=== PATIENT | female | born 1940 | race Caucasian/White ===

== ENCOUNTER 2017-07-26 10:56 | Inpatient (IN) | payer OTHER ==
[~2017-07-26] VITALS: Ht 149.9 cm; Wt 72.4 kg
[~2017-07-26 10:56] MED LIST: ALBUTEROL0.09 MG/A1 INH; ALBUTEROL1.25 MG/3 INH/SOL; ASPIRIN EC81 M1 PO; AUGMENTIN 875-1 EACH PO; CALCIUM600 M3 PO; CEPHALEXIN500 MG PO; COUMADIN5 M2 PO; CRESTOR10 M1 PO; DAILY MULTIPLE1 EACH PO; DOCUSATE SODIU100 M3 PO; FISH OIL CONC1000 M1 PO; FUROSEMIDE20 M1 PO; JANUVIA50 M1 PO; KLOR-CON M1010 ME1 PO; LEVOTHYROXINE25 MCG PO; LISINOPRIL40 M1 PO; LORAZEPAM0.5 MG PO; MEDROL4 M2 PO; METFORMIN HCL1000 M1 PO; OFIRMEV1000 MG/10 PO; PREDNISONE10 MG PO; RALOXIFENE HYDR60 MG PO; SPIRIVA18 MCG INH; TRIAMCINOLONE 0.1 GM TOP; VITAMIN D1000 IU PO; VITAMIN D3400 UNI1 PO; VITAMIN E400 UNI4 PO; ZITHROMAX 500M500 MG PO
--- NOTE | 2017-07-26 11:13 | ED UPPER/LOWER EXTREMITY COMPL ---
History of Present Illness General Chief Complaint: Upper Extremity Injury Stated Complaint: BIBA LEFT ARM PAIN S/P HUMEROUS FX 06/28 Source: patient Exam Limitations: no limitations Vital Signs & Intake/Output Vital Signs & Intake/Output Vital Signs Date Time Temp Pulse Resp B/P B/P Pulse O2 O2 Flow FiO2 Mean Ox Delivery Rate 07/30 1600 96 Room Air Room Air 07/30 1600 98.3 102 18 116/60 96 Room Air Room Air 07/30 1250 96 Nasal 1.0L Cannula 07/30 1200 97 Nasal 1.0L Cannula 07/30 0800 98 Nasal 1.0L Cannula 07/30 0800 97.2 100 18 114/60 98 Nasal 1.0L Cannula 07/30 0400 99 Nasal 1.0L Cannula 07/30 0000 98 Nasal 1.0L Cannula 07/30 0000 98.1 94 20 110/50 98 Nasal 1.0L Cannula 07/29 2156 95 Room Air Room Air ED Intake and Output 07/30 0000 07/29 1200 Intake Total 1988 520 Output Total 1200 600 Balance 788 -80 Intake, Blood 350 Product Intake, IV 198 520 Intake, Oral 1440 Number 0 1 Bowel Movements Output, Urine 1200 600 Patient 160 lb Weight Allergies Coded Allergies: NO KNOWN ALLERGIES (09/22/14) Triage Nurses Notes Reviewed? yes Onset: Gradual Duration: week(s): Timing: recent history Severity: moderate Pain/Injury Location: Left: Shoulder. HPI: 77yo female with hx of DM, HTN, PE BIBA to ED from rehab facility complaining of left shoulder pain. Patient sustained left humeral neck fracture on 06/28/17 at her home for which she was admitted to the hospital for. She was discharged to rehabilitation facility and has been there since. Patient is on tramadol and oxycontin however states that she still has significant left shoulder and arm pain. Patient states that she has recently been treated for dehydration. Patient has been getting IV fluids at the rehab facility. Patient reports diarrhea yesterday. She denies numbness, paresthesias, fevers, chills, cough, abdominal pain, nausea, vomiting, dysuria, urinary odor or frequency. (Maria Elena AVELAR,Sylvia Mena) Reconcile Medications Aspirin (Ecotrin*) 81 MG TABLET.DR 1 TAB PO DAILY HEART HEALTH (Reported) Enoxaparin Sodium (Lovenox) 120 MG/0.8 ML SYRINGE 120 MG SC DAILY BLOOD THINNER (Reported) Levothyroxine Sodium 25 MCG TABLET 2 TAB PO DAILY AC THYROID (Reported) Lisinopril 40 MG TABLET 1 TAB PO DAILY BP (Reported) Melatonin 3 MG TABLET 2 TAB PO QHS SLEEP (Reported) Oxycodone HCl 5 MG TABLET 1 TAB PO BID PAIN (Reported) Pantoprazole Sodium 40 MG TABLET.DR 1 TAB PO DAILY GI (Reported) Pravastatin Sodium 10 MG TABLET 1 TAB PO DAILY CHOLESTEROL (Reported) Sitagliptin Phosphate (Januvia) 50 MG TABLET 0.5 TAB PO DAILY DIABETES ( Reported) Sucralfate (Carafate) 1 GRAM TABLET 1 TAB PO 4 TIMES/DAY GI (Reported) Tramadol HCl (Ultram) 50 MG TABLET 1 TAB PO Q6P PRN PAIN (Reported) (Renee MARES,Mariela) Past History Travel History Traveled to [place] past 21 day No Medical History Any Pertinent Medical History? 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 No (Sylvia Del Real) Review of Systems Review of Systems Constitutional: Reports: see HPI. EENTM: Reports: no symptoms. Respiratory: Reports: no symptoms. Cardiovascular: Reports: no symptoms. Gastrointestinal/Abdominal: Reports: see HPI. Genitourinary: Reports: no symptoms. Musculoskeletal: Reports: see HPI. Skin: Reports: no symptoms. Neurological/Psychological: Reports: no symptoms. Hematologic/Endocrine: Reports: no symptoms. Immunological: Reports: no symptoms. All Other Systems: Reviewed and Negative (Sylvia Del Real) Physical Exam Physical Exam General Appearance: well developed/nourished, no apparent distress, alert, awake Head: atraumatic, normal appearance Eyes: Bilateral: normal appearance. Ears, Nose, Throat: hearing grossly normal Neck: normal inspection, supple, full range of motion Cardiovascular/Respiratory: normal breath sounds, no respiratory distress, tachycardia Peripheral Pulses: 2+ radial (R), 2+ radial (L) Gastrointestinal: nontender Back: healing ecchymosis to back, nontender, mild erythema to sacral area without swelling, warmth, or tenderness Shoulder Left: in shoulder immobilizer, tenderness to palpation Shoulder Right: normal range of motion, normal inspection Elbow Left: nontender, moderate firmness and swelling to upper arm Elbow Right: normal range of motion, normal inspection Hand Left: normal inspection, normal range of motion Hand Right: normal inspection, normal range of motion Neurologic/Tendon: normal sensation Skin: intact, warm/dry, ecchymosis (Maria Elena AVELAR,Sylvia Mena) Progress Differential Diagnosis: cellulitis, compartment syndrome, contusion, fracture, septic arthritis, sprain, tendon injury, sepsis, UTI, ADRIANA, electrolyte abnormality, dehydration Plan of Care: Orders Procedure Date/time Status Transfer patient to 07/30 1313 Active Peña, Insertion/Removal/Asses 07/30 0834 Complete Turn and Reposition 07/30 042 Active Skin Integrity Protocol 07/30 0423 Active RT RE-EVALUATION 07/30 UNK Complete MISSING MEDICATION FORM 07/30 UNK Active INCENTIVE SPIROMETRY TRX CHG 07/29 UNK Complete OXYGEN 07/29 UNK Complete OXYGEN DAILY CHARGE 07/29 UNK Complete INCENTIVE SPIROMETRY TRX CHG 07/28 UNK Complete OXYGEN 07/28 UNK Complete OXYGEN DAILY CHARGE 07/28 UNK Complete OXYGEN SETUP CHG 07/27 UNK Complete INCENTIVE SPIROMETRY TRX CHG 07/27 UNK Complete OXYGEN 07/27 UNK Complete OXYGEN TRANSPORT 07/27 UNK Complete Current Medications Sig/Fanny Start time Last Medication Dose Stop Time Status Admin Heparin Sodium 5,000 UNIT Q8 07/29 1400 AC 07/30 (Porcine) 1421 Lidocaine 1 PAT 0800 07/28 0800 AC 07/30 (Lidoderm) 0942 Melatonin 6 MG AT BEDTIME 07/27 2200 AC 07/29 (Melatonin) 2121 Pravastatin Sodium 10 MG 1700 07/27 1700 AC 07/30 (Pravachol) 1639 Lorazepam 0.25 MG Q4P PRN 07/27 1415 AC 07/27 (Ativan) 1414 Tiotropium [place] 1 PUF DAILY 07/27 1130 AC 07/30 (Spiriva) 0938 Aspirin Buffered 81 MG DAILY 07/27 1000 AC 07/30 (Ecotrin) 0925 Insulin Aspart 0 TIDAC 07/27 0800 AC 07/30 (NovoLOG) 1639 Levothyroxine Sodium 0.05 MG DAILY AC 07/27 0700 AC 07/30 (Synthroid) 0600 Omeprazole 40 MG DAILY AC 07/27 0700 AC 07/30 (Prilosec) 0600 Ceftriaxone Sodium 1,000 MG 1000 07/27 0630 AC 07/30 (Rocephin) 0926 Metronidazole 500 MG Q8 07/27 0600 AC 07/30 (Flagyl) 1421 Albuterol Sulfate 3 ML Q4H PRN 07/26 2345 AC (Proventil) Acetaminophen 650 MG Q8P PRN 07/26 2230 AC 07/29 (Tylenol) 1615 Oxycodone HCl 5 MG Q8P PRN 07/26 223 AC 07/30 (Roxicodone) 09 Laboratory Tests 07/30/17 0400: Anion Gap 4 L, Estimated GFR > 60, Glucose 107 H, Calcium 8.0 L, Phosphorus 2.6, Magnesium 1.3 L, Total Bilirubin 0.6, AST 12 L, ALT 24, Albumin 2.1 L, CBC w Diff NO MAN DIFF REQ, RBC 3.16 L, MCV 90.3, MCH 30.2, RDW 15.6 H, MPV 8.0, Gran % 78.6 H, Lymphocytes % 10.7 L, Monocytes % 7.9, Eosinophils % 2.4, Basophils % 0.4, Absolute Granulocytes 9.2 H, Absolute Lymphocytes 1.3, Absolute Monocytes 0.9 H, Absolute Eosinophils 0.3, Absolute Basophils 0.1, PUBS MCHC 33.4 The patient was discussed with Dr. Duran. Acute kidney injury with dehydration, we'll obtain CT abdomen to assess for obstructive uropathy or signs of infectious or inflammatory process. Ultrasound without signs of deep clot, CT abdomen without acute changes, chest x -ray stable. Patient's blood work shows leukocytosis, lactic acid negative. Patient arrived with 1 L of fluids. She was medicated with 2 L normal saline here in the emergency department, currently on her third liter. Patient with minimal urine output. Dehydration possibly secondary to recent diarrhea. The patient was discussed with Dr. Wick. Will admit to general medicine following results of second lactic acid. Diagnostic Imaging: Viewed by Me: CT Scan, Ultrasound. Discussed w/RAD: CT Scan, Ultrasound. Radiology Impression: PATIENT: MARY DE LEON PRESENT AGE: 77 PATIENT ACCOUNT NO: [id number] : 38 LOCATION: [facility] ORDERING PHYSICIAN: Mariela Duran MD SERVICE DATE: 07/26/17 EXAM TYPE: US - US- DUPLEX VENOUS EXTREM UNI EXAMINATION: US TRIPLEX UPPER EXTREMITY, LEFT CLINICAL INFORMATION: Suspected venous thromboembolism. Left humeral fracture. Left arm swelling. COMPARISON: None TECHNIQUE: Color-flow triplex imaging with spectral analysis and compression Doppler was performed on the left upper extremity. FINDINGS: The left internal jugular, subclavian, and axillary veins are patent and free of thrombus. The imaged segment of the left brachiocephalic vein is patent. Spectral doppler waveforms are normal. The brachial, basilic, and cephalic veins are patient and compressible. IMPRESSION: Normal venous ultrasound of the left upper extremity without evidence of deep vein thrombosis. DICTATED BY: Miki Gaines MD DATE/TIME DICTATED:07/26/171239 GOLF INSTRUCTOR:LAYO DATE/TIME TRANSCRIBED:07/26/171239 CONFIDENTIAL, DO NOT COPY WITHOUT APPROPRIATE AUTHORIZATION. <Electronically signed in Other Vendor System> SIGNED BY: Miki Gaines MD 07/26/171247 CXR Impression: PATIENT: MARY DE LEON PRESENT AGE: 77 PATIENT ACCOUNT NO: [id number] : 38 LOCATION: [facility] ORDERING PHYSICIAN: Mariela Duran MD SERVICE DATE: 07/26/17 EXAM TYPE: RAD - XRY-PORTABLE CHEST XRAY EXAMINATION: XR PORTABLE CHEST CLINICAL INFORMATION: Hypotensive, leukocytosis COMPARISON: Multiple priors, most recent from 06/28/2017. TECHNIQUE : Portable frontal view of the chest was obtained. FINDINGS: Marked distortion of the thorax with scoliosis of the thoracic spine again seen. The cardiomediastinal silhouette is unchanged. There is linear atelectasis in the right base. No definite consolidative airspace disease. No evidence of pulmonary edema. No pleural effusion or pneumothorax. Displaced fracture of the left proximal humerus is again seen. IMPRESSION: Mild right basilar atelectasis. No definite evidence of pneumonia. Healing left proximal humerus fracture. DICTATED BY: Magy Sparrow MD DATE/TIME DICTATED:07/26/171448 GOLF INSTRUCTOR: LAYO DATE/TIME TRANSCRIBED:07/26/171448 CONFIDENTIAL, DO NOT COPY WITHOUT APPROPRIATE AUTHORIZATION. <Electronically signed in Other Vendor System> SIGNED BY: Magy Sparrow MD 07/26/17 9138, PATIENT: MARY DE LEON PRESENT AGE: 77 PATIENT ACCOUNT NO: [id number] : LOCATION: [facility] ORDERING PHYSICIAN: Sylvia AVELAR SERVICE DATE: 07/26/17 EXAM TYPE: CAT - CT ABD & PELVIS W/O IV CONTRAS EXAMINATION: CT ABDOMEN AND PELVIS WITHOUT CONTRAST CLINICAL INFORMATION: 77-year-old female with hypotension, tachycardia and acute renal insufficiency. Evaluate for acute abdominal pathology including renal obstruction. COMPARISON: Chest CT, 2012 TECHNIQUE: Multidetector volumetric imaging was performed from the superior aspect of the liver through the pubic symphysis. Sagittal and coronal reformatted images were obtained on the technologist's workstation. DLP: 721 mGy -cm FINDINGS: PHOTOCOPY OPERATOR: Rotatory dextroscoliosis of thoracic spine and rotatory levoscoliosis of lumbar spine. LUNG BASES: Chronic atelectasis within both lower lobes -- similar appearance compared to 06/18/2013. No pulmonary edema or pleural effusion. Three-vessel coronary artery atherosclerotic calcification. Trace pericardial effusion. LIVER, GALLBLADDER, AND BILIARY TREE: Liver has normal size and contour. No evidence of liver mass. Gallbladder is surgically absent and the common bile duct is chronically dilated, measuring 1.6 cm AP, compared to 1.4 cm AP on 06/18/2013. There are no calcified stones within the dilated duct. The intrahepatic bile ducts are mildly dilated. PANCREAS: Unremarkable. SPLEEN: Unremarkable. ADRENAL GLANDS: Unremarkable. KIDNEYS AND URETERS: Kidneys are normal in size and have normal cortical thickness and attenuation. No nephrolithiasis or hydroureteronephrosis. BLADDER: Urinary bladder is nearly completely empty. No bladder calculi. GASTROINTESTINAL TRACT: Loops of bowel are normal in caliber. Diverticulosis of sigmoid colon without diverticulitis. No evidence of acute inflammation or obstruction along the gastrointestinal tract. No abdominal abscess, ascites or pneumoperitoneum. ABDOMINAL WALL: Small fat-containing umbilical hernia. There is laxity of the abdominal wall fascia and diffuse atrophy of the abdominal wall muscles. Small and large bowel located deep to the abdominal wall fascia; no focal bowel herniation. Small focus of gas in subcutaneous tissues of the right lower abdominal wall is presumably related to recent medication injection. Also, there are small injection granulomas and/or small injection related hematomas in the subcutaneous tissues of the lower abdominal wall. LYMPH NODES: No pathologic sized lymph nodes within the abdomen or pelvis. VASCULAR: [id number] atherosclerotic calcification of the abdominal aorta without aneurysm. No retroperitoneal hematoma. PELVIC VISCERA: No evidence of uterine or mass. There are myometrial vascular calcifications. Multiple phleboliths are present in the pelvis. No pelvic free fluid. OSSEOUS STRUCTURES: Mild osteoarthritis of the hips. No acute fractures within the degenerated, scoliotic spine. There is multilevel chondrocalcinosis of the degenerated spine. The facet osteoarthritis is severe at L3-L4, L4-L5 and L5-S1. There is chronic right lateral listhesis of at T11-T12, T12-L1 and L1-L2. IMPRESSION: 1. No evidence of nephrolithiasis or urinary tract obstruction. 2. Status post cholecystectomy with chronically dilated common bile duct; no evidence of choledocholithiasis 3. Colonic diverticulosis without diverticulitis. 4. Severe rotatory dextroscoliosis of the thoracic spine and levoscoliosis of the lumbar spine. 5. Chronic atelectasis within the lower lobes. DICTATED BY: Lucas Roach MD DATE/TIME DICTATED:07/26 GOLF INSTRUCTOR:LAYO DATE/TIME TRANSCRIBED:07/26/171450 CONFIDENTIAL, DO NOT COPY WITHOUT APPROPRIATE AUTHORIZATION. <Electronically signed in Other Vendor System> SIGNED BY: Lucas Roach MD 07/26/17 1505 Initial ED EKG: sinus tachycardia @115bpm, LBBB Prior EKG: unchanged (06/29/17) (Maria Elena AVELAR,Sylvia Mena) Departure Departure Disposition: STILL A PATIENT Condition: Stable Clinical Impression Primary Impression: Acute kidney injury Secondary Impressions: Dehydration Hypomagnesemia Hypotension Qualifiers: Hypotension type: unspecified hypotension type Qualified Code: I95.9 - Hypotension, unspecified Referrals: Trager MD,Gustavo C. (PCP/Family) Departure Forms: Customer Survey General Discharge Information Admission Note Spoke With: Mike Wick MD Documentation of Exam: Documentation of any treatments & extenuating circumstances including Concerns Regarding Discharge (functional status, medication knowledge or non-compliance, living conditions, etc.) that warrant an admission rather than observation: [ Acute kidney injury with dehydration requiring IV fluid hydration, repeat labs, possible IV electrolyte repletion, pain management, premature discharge would be unsafe] (Maria Elena AVELAR,Sylvia Mena) PA/GROUP DIRECTOR EXPERIENCE Co-Sign Statement Statement: ED Attending supervision documentation- [X] I saw and evaluated the patient. I have also reviewed all the pertinent lab results and diagnostic results. I agree with the findings and the plan of care as documented in the PA's/GROUP DIRECTOR EXPERIENCE's documentation. [X] I have reviewed the ED Record and agree with the PA's/GROUP DIRECTOR EXPERIENCE's documentation. [] Additions or exceptions (if any) to the PAs/GROUP DIRECTOR EXPERIENCE's note and plan are summarized below: [] (Renee MARES,Mariela)
[2017-07-26 11:46] LABS: ABSOLUTE BASOPHIL COUNT 0.1 /CUMM (0.0-0.2); ABSOLUTE EOSINOPHIL COUNT 0 /CUMM (0.0-0.7); ABSOLUTE GRANULOCYTE CT 18.3 /CUMM (1.4-6.5); ABSOLUTE LYMPH COUNT 0.6 /CUMM (1.2-3.4); ABSOLUTE MONOCYTE COUNT 1.3 /CUMM (0.10-0.60); BASOPHIL % 0.4 % (0.0-2.0); EOSINOPHIL % 0 % (0-5); GRANULOCYTE % 90.1 % (42.2-75.2); HEMATOCRIT 26.1 % (37-47); MEAN CORPUSCULAR HGB 30.8 PG (27.0-31.0); MEAN CORPUSCULAR HGB CONC 32.9 G/DL (33.0-37.0); MEAN CORPUSCULAR VOLUME 93.6 FL (81.0-99.0); MEAN PLATELET VOLUME 9.3 FL (7.4-10.4); PLATELET COUNT 378 /CUMM (130-400); RBC DISTRIBUTION WIDTH 14.4 % (11.5-14.5); RED BLOOD CELL CT 2.79 /CUMM (4.20-5.40); WHITE BLOOD CELL COUNT 20.3 /CUMM (4.8-10.8)
--- NOTE | 2017-07-26 12:48 | ULTRASOUND REPORT ---
EXAMINATION: US TRIPLEX UPPER EXTREMITY, LEFT CLINICAL INFORMATION: Suspected venous thromboembolism. Left humeral fracture. Left arm swelling. COMPARISON: None TECHNIQUE: Color-flow triplex imaging with spectral analysis and compression Doppler was performed on the left upper extremity. FINDINGS: The left internal jugular, subclavian, and axillary veins are patent and free of thrombus. The imaged segment of the left brachiocephalic vein is patent. Spectral doppler waveforms are normal. The brachial, basilic, and cephalic veins are patient and compressible. IMPRESSION: Normal venous ultrasound of the left upper extremity without evidence of deep vein thrombosis.
[2017-07-26] MEDS ORDERED: LOVENOX120 MG/0.1 SC (14:47)
[2017-07-26] MEDS ORDERED: CARAFATE1 G1 PO (14:47)
[2017-07-26] MEDS ORDERED: PRAVASTATIN SOD10 M2 PO (14:48)
[2017-07-26] MEDS ORDERED: PANTOPRAZOLE SO40 M1 PO (14:49)
[2017-07-26] MEDS ORDERED: MELATONIN3 M4 PO (14:50)
[2017-07-26] MEDS ORDERED: OXYCODONE HCL5 M1 PO (14:51)
--- NOTE | 2017-07-26 14:57 | RADIOLOGY REPORT ---
EXAMINATION: XR PORTABLE CHEST CLINICAL INFORMATION: Hypotensive, leukocytosis COMPARISON: Multiple priors, most recent from 06/28/2017. TECHNIQUE: Portable frontal view of the chest was obtained. FINDINGS: Marked distortion of the thorax with scoliosis of the thoracic spine again seen. The cardiomediastinal silhouette is unchanged. There is linear atelectasis in the right base. No definite consolidative airspace disease. No evidence of pulmonary edema. No pleural effusion or pneumothorax. Displaced fracture of the left proximal humerus is again seen. IMPRESSION: Mild right basilar atelectasis. No definite evidence of pneumonia. Healing left proximal humerus fracture.
[2017-07-26] MEDS ORDERED: ULTRAM50 M1 PO (15:05)
--- NOTE | 2017-07-26 15:08 | CT SCAN REPORT ---
EXAMINATION: CT ABDOMEN AND PELVIS WITHOUT CONTRAST CLINICAL INFORMATION: 77-year-old female with hypotension, tachycardia and acute renal insufficiency. Evaluate for acute abdominal pathology including renal obstruction. COMPARISON: Chest CT, 06/18/2013 TECHNIQUE: Multidetector volumetric imaging was performed from the superior aspect of the liver through the pubic symphysis. Sagittal and coronal reformatted images were obtained on the technologist's workstation. DLP: 721 mGy-cm FINDINGS: DIESEL CRANE OPERATOR: Rotatory dextroscoliosis of thoracic spine and rotatory levoscoliosis of lumbar spine. LUNG BASES: Chronic atelectasis within both lower lobes -- similar appearance compared to 06/18/2013. No pulmonary edema or pleural effusion. Three-vessel coronary artery atherosclerotic calcification. Trace pericardial effusion. LIVER, GALLBLADDER, AND BILIARY TREE: Liver has normal size and contour. No evidence of liver mass. Gallbladder is surgically absent and the common bile duct is chronically dilated, measuring 1.6 cm AP, compared to 1.4 cm AP on 06/18/2013. There are no calcified stones within the dilated duct. The intrahepatic bile ducts are mildly dilated. PANCREAS: Unremarkable. SPLEEN: Unremarkable. ADRENAL GLANDS: Unremarkable. KIDNEYS AND URETERS: Kidneys are normal in size and have normal cortical thickness and attenuation. No nephrolithiasis or hydroureteronephrosis. BLADDER: Urinary bladder is nearly completely empty. No bladder calculi. GASTROINTESTINAL TRACT: Loops of bowel are normal in caliber. Diverticulosis of sigmoid colon without diverticulitis. No evidence of acute inflammation or obstruction along the gastrointestinal tract. No abdominal abscess, ascites or pneumoperitoneum. ABDOMINAL WALL: Small fat-containing umbilical hernia. There is laxity of the abdominal wall fascia and diffuse atrophy of the abdominal wall muscles. Small and large bowel located deep to the abdominal wall fascia; no focal bowel herniation. Small focus of gas in subcutaneous tissues of the right lower abdominal wall is presumably related to recent medication injection. Also, there are small injection granulomas and/or small injection related hematomas in the subcutaneous tissues of the lower abdominal wall. LYMPH NODES: No pathologic sized lymph nodes within the abdomen or pelvis. VASCULAR: [id number] atherosclerotic calcification of the abdominal aorta without aneurysm. No retroperitoneal hematoma. PELVIC VISCERA: No evidence of uterine or mass. There are myometrial vascular calcifications. Multiple phleboliths are present in the pelvis. No pelvic free fluid. OSSEOUS STRUCTURES: Mild osteoarthritis of the hips. No acute fractures within the degenerated, scoliotic spine. There is multilevel chondrocalcinosis of the degenerated spine. The facet osteoarthritis is severe at L3-L4, L4-L5 and L5-S1. There is chronic right lateral listhesis of at T11-T12, T12-L1 and L1-L2. IMPRESSION: 1. No evidence of nephrolithiasis or urinary tract obstruction. 2. Status post cholecystectomy with chronically dilated common bile duct; no evidence of choledocholithiasis 3. Colonic diverticulosis without diverticulitis. 4. Severe rotatory dextroscoliosis of the thoracic spine and levoscoliosis of the lumbar spine. 5. Chronic atelectasis within the lower lobes.
--- NOTE | 2017-07-26 22:22 | History & Physical ---
Roman Cedeno MDapna 07/26/172: General Information and [facility] MD Statement: I have seen and personally examined MARY SAENZ and documented this H&P. The patient is a 77 year old F who presented with a patient stated chief complaint of [left arm pain]. Source of Information: patient Exam Limitations: physical impairment History of Present Illness: 77-year-old female with past medical history of diabetes, hypertension, COPD on home oxygen, hypothyroidism, chronic bilateral pedal edema, chronic pulmonary embolism was on Coumadin now on Lovenox came to [facility] with complaints of left arm pain and dehydration. Patient had a mechanical fall on 06/28/2017 and was admitted in [facility] for 4 days on and was managed conservatively and was sent to [facility]. Patient after 2 days had tachycardia and a saturation of 88 and was immediately sent to [facility] in view of past history of pulmonary embolism. Patient was there for 4 days [treatment details unknown] then sent back to [facility] on Lovenox and aspirin was stopped [ guaiac-positive stools]. Patient complains of decreased by mouth intake for past week and had loose watery stools for past couple of days associated with nausea and one episode of vomiting.. Patient denies shortness of breath, chest pain, chest pressure, palpitations, abdominal pain, dysuria, blood in stools, common cold, flu, Hematuria, weakness, dizziness. Patient was seen by a doctor in [facility] who said that she was dehydrated 4 days ago and she was started on IV fluids today. Patient was seen by physical therapist at the rehabilitation center. Patient was able to walk with the help, but felt short of breath.past surgical history-appendectomy, cholecystectomy. At baseline she uses cane or walker at home. She denies smoking/alcohol use. She had recent flu shot. She sees Dr. Grace for COPD. Allergies/Medications Allergies: Coded Allergies: NO KNOWN ALLERGIES (09/22/14) Home Med list Aspirin (Ecotrin*) 81 MG TABLET.DR 1 TAB PO DAILY HEART HEALTH (Reported) Enoxaparin Sodium (Lovenox) 120 MG/0.8 ML SYRINGE 120 MG SC DAILY BLOOD THINNER (Reported) Levothyroxine Sodium 25 MCG TABLET 2 TAB PO DAILY AC THYROID (Reported) Lisinopril 40 MG TABLET 1 TAB PO DAILY BP (Reported) Melatonin 3 MG TABLET 2 TAB PO QHS SLEEP (Reported) Oxycodone HCl 5 MG TABLET 1 TAB PO BID PAIN (Reported) Pantoprazole Sodium 40 MG TABLET.DR 1 TAB PO DAILY GI (Reported) Pravastatin Sodium 10 MG TABLET 1 TAB PO DAILY CHOLESTEROL (Reported) Sitagliptin Phosphate (Januvia) 50 MG TABLET 0.5 TAB PO DAILY DIABETES ( Reported) Sucralfate (Carafate) 1 GRAM TABLET 1 TAB PO 4 TIMES/DAY GI (Reported) Tramadol HCl (Ultram) 50 MG TABLET 1 TAB PO Q6P PRN PAIN (Reported) Compliance With Home Meds: GOOD Past History Travel History Traveled to [place] past 21 day No Medical History Neurological: NONE EENT: NONE Cardiovascular: hyperlipidemia Respiratory: COPD Gastrointestinal: NONE Hepatic: NONE Renal: NONE Musculoskeletal: ARTHRITIS R HUMERUS FX 06/28/17 Psychiatric: NONE Endocrine: diabetes, hypothyroidism Blood Disorders: PE Cancer(s): NONE RUBBLE PLACER/Reproductive: NONE History of MRSA: No History of VRE: No History of CDIFF: No Influenza Vaccine: 06/07/17 Surgical History Surgical History: appendectomy, cholecystectomy ECHO Results (as available) EF% 65 Past Family/Social History Family History Relations & Conditions if any MOTHER FH: diabetes mellitus FHx: heart disease FATHER FHx: lung cancer Psychosocial History Where do you live? Acute Rehab Services at Home: Oxygen Primary Language: Luxembourgish Smoking Status: Former Smoker ETOH Use: denies use Illicit Drug Use: denies illicit drug use Functional Ability ADLs Independent: dressing, eating, toileting, bathing. Ambulation: cane, walker IADLs Independent: shopping, housework, finances, food prep, telephone, transportation , medication admin. Review of Systems Review of Systems Constitutional: Reports: weakness. EENTM: Reports: no symptoms. Cardiovascular: Reports: no symptoms. Respiratory: Reports: no symptoms, short of breath. GI: Reports: diarrhea, vomiting. Genitourinary: Reports: no symptoms. Musculoskeletal: Reports: no symptoms. Skin: Reports: no symptoms. Neurological/Psychological: Reports: no symptoms. Hematologic/Endocrine: Reports: no symptoms. Exam & Diagnostic Data Last 24 Hrs of Vital Signs/I&O Vital Signs Date Time Temp Pulse Resp B/P B/P Pulse O2 O2 Flow FiO2 Mean Ox Delivery Rate 07/26 2305 108 16 106/60 98 Room Air 12/23 2156 98.0 120 16 104/57 98 Nasal 2.0L Cannula 07/26 1928 110 16 90/54 95 Nasal 2.0L Cannula 07/26 1915 109 16 92/53 94 Nasal 2.0L Cannula 07/26 1829 97.5 109 16 95/52 93 Nasal 2.0L Cannula 07/26 1757 112 16 94/55 97 Nasal 2.0L Cannula 07/26 1740 115 16 84/52 97 Nasal 2.0L Cannula 07/26 1634 115 14 110/54 93 Room Air 07/26 1435 97.8 114 18 91/52 96 Nasal 2.0L Cannula 07/26 1330 114 18 92/54 97 Nasal 2.0L Cannula 07/26 1248 98.1 114 18 93/52 97 Nasal 2.0L Cannula 07/26 1219 112 18 101/55 94 Nasal 2.0L Cannula 07/26 1144 94 Nasal 2.0L Cannula 07/26 1130 114 20 92/50 93 Room Air Room Air 07/26 1100 98.2 122 20 82/48 97 Room Air Intake & Output 07/27 0800 07/27 0000 07/26 1600 Intake Total 3000 1000 Output Total 210 Balance 2790 1000 Intake, IV 3000 1000 Output, Urine 210 Patient 144 lb Weight Weight Reported by Patient Measurement Method Physical Exam General Appearance Alert, Oriented X3, Cooperative, No Acute Distress Skin chronic venous changes in both legs HEENT PERRLA Neck Supple, No JVD Cardiovascular Regular Rate, Normal S1, Normal S2 Lungs Clear to Auscultation Abdomen Soft, No Tenderness Neurological Normal Speech, Strength at 5/5 X4 Ext, Normal Tone, Sensation Intact Extremities No Cyanosis, No Edema, Normal Pulses Vascular Normal Pulses Last 24 Hrs of Labs/Daniel: Laboratory Tests 07/26/172116: Lactic Acid 1.0 07/26/17 162: Urine Color YEL, Urine Clarity HAZY H, Urine pH 5.0, Ur Specific [place] 1.025, Urine Protein TRACE H, Urine Ketones TRACE H, Urine Nitrite NEG, Urine Bilirubin NEG@ICTO, Urine Urobilinogen 1.0, Ur Leukocyte Esterase SMALL H, Ur Microscopic SEDIMENT EXAMINED, Urine RBC 1-3, Urine WBC 3-5 H, Ur Epithelial Cells MANY H, Urine Hemoglobin TRACE-INTACT, Urine Glucose NEG 07/26/17 1622: Urine Opiates Screen 281.00, Methadone Screen < 40, Barbiturate Screen < 60, Ur Phencyclidine Scrn < 6.00, Amphetamines Screen < 100, U Benzodiazepines Scrn < 85, Urine Cocaine Screen < 50, Urine Cannabis Screen < 5.00, Ur Random Creatinine 182.7, Ur Random Sodium 7 L, Ur Random Potassium 45.5, Fraction Sodium Excret 0.1 07/26/17 1130: Anion Gap 12, Estimated GFR 23 L, BUN/Creatinine Ratio 23.8, Glucose 114 H, Lactic Acid 1.9, Calcium 8.8, Magnesium 1.0 L, Total Bilirubin 0.6, AST 18, ALT 33, Alkaline Phosphatase 60, Troponin I 0.01, Total Protein 5.2 L, Albumin 3.1 L, Globulin 2.1, Albumin/Globulin Ratio 1.5, CBC w Diff MAN DIFF ORDERED, RBC 2.79 L, MCV 93.6, MCH 30.8, RDW 14.4, MPV 9.3, Gran % 90.1 H, Lymphocytes % 2.9 L, Monocytes % 6.6, Eosinophils % 0, Basophils % 0.4, Absolute Granulocytes 18.3 H, Absolute Lymphocytes 0.6 L, Absolute Monocytes 1.3 H, Absolute Eosinophils 0, Absolute Basophils 0.1, Platelet Estimate ADEQUATE, Hypochromic- Microcytic 1+, Anisocytosis 1+, PUBS MCHC 32.9 L Microbiology 07/26 2115 BLOOD: Blood Culture - RECD 07/26 1622 URINE ROUT: Urine Culture - RECD 07/26 1452 BLOOD: Blood Culture - RECD Diagnostic Data EKG Results Heart rate 90, left bundle branch block, left ventricular hypertrophy CXR Results Mild right basilar atelectasis. No definite evidence of pneumonia. Healing left proximal humerus fracture. Other Results Ultrasound Doppler Normal venous ultrasound of the left upper extremity without evidence of deep vein thrombosis. CT abdomen and pelvis IMPRESSION: 1. No evidence of nephrolithiasis or urinary tract obstruction. 2. Status post cholecystectomy with chronically dilated common bile duct; no evidence of choledocholithiasis 3. Colonic diverticulosis without diverticulitis. 4. Severe rotatory dextroscoliosis of the thoracic spine and levoscoliosis of the lumbar spine. 5. Chronic atelectasis within the lower lobes. Assessment/Plan Assessment: 77-year-old female with past medical history of diabetes, hypertension, COPD on home oxygen, hypothyroidism, chronic bilateral pedal edema, chronic pulmonary embolism was on Coumadin now on Lovenox came to [place] [facility] with complaints of left arm pain and dehydration found to be hypovolemic, acute kidney injury, oliguria secondary to decreased by mouth intake and diarrhea. Patient admitted in [facility] for further evaluation and management. Vitals-blood pressure 82/48, pulse rate 122, temperature 97.5, saturating 98 on 2 L of nasal cannula. Labs-WBC 20.3, hemoglobin 8.6, sodium 133, potassium 5.2, calcium 8.2, magnesium 1, lactic acid 1.9 Problem list 1. Nonhemorrhagic hypovolemic shock 2. Acute kidney injury 3. Chronic pulmonary embolism 4. Diabetes 5. Hypertension 6. COPD 7. Hypothyroidism 8. Left humerus fracture Assessment and plan 1.Nonhemorrhagic hypovolemic shock / Acute kidney injury/chronic pulmonary embolism * Patient admission blood pressure was 82/48, pulse rate -122, temperature-98.2 was resuscitated with 4 L of normal saline in the ED and the output was 210 after the 4 L of resuscitation. Patient had a BUN and of 50, creatinine of 2.1 which looks more of a prerenal. Most likely cause of her hypokalemia is due to watery diarrhea for the past 2 days and decreased by mouth intake. We will hold her antihypertensive medication and avoid any diuretics or any nephrotoxic drug. * We will continue monitoring her CBCs, BEP. Patient has W BC count of 20.3 and a low hemoglobin of 8.6 with hematocrit of 26.1. We will work her up for anemia -send ferritin, TIBC, serum iron, transferrin, C. difficile, stool for ova, cyst and parasites. There is no evidence of any sepsis. * Patient was on warfarin for her chronic pulmonary embolism, but was switched to Lovenox when she was admitted at [facility] on July 03 till July 07 and her aspirin was also stopped during the same time-reason not known. Suspicion for recurrent PE is in our differential and we will do VQ scan if tachycardia continues. We will send coagulation profile and start on IV heparin. Guaiac negative. * We will trend troponin and EKG. we will get an echocardiogram in a.m. Patient also has hyperkalemia, hyponatremia with hypertension requiring 4 L of IV fluids -adrenalinsufficiency can be considered in differential. We will send cortisol, TSH. 2. Diabetes/hypertension/hypothyroidism/COPD * Patient is on 2 L of oxygen. We will put her on Accu-Chek and NovoLog sliding scale insulin. We will continue her levothyroxine, pravastatin, oxycodone, lidocaine patch. Hold her antihypertensives. 3. Left humerus fracture * We will continue pain medications. Code-full code. Patient wants to discuss with her son regarding her CODE STATUS tomorrow morning. DVT prophylaxis-heparin, Alps. Diet-heart healthy diet As Ranked By This Provider Problem List: 1. HTN (hypertension) 2. Hypothyroid 3. Diabetes 4. Hyperlipidemia 5. Pulmonary embolism 6. Proximal humerus fracture 7. Anemia 8. Acute kidney failure Qualifiers Acute renal failure type: unspecified Qualified Code: N17.9 - Acute kidney failure, unspecified 9. Dehydration 10. Hypotension Qualifiers Hypotension type: unspecified hypotension type Qualified Code: I95.9 - Hypotension, unspecified Core Measures/Misc (04/20) Acute Coronary Syndrome ACS Diagnosis: No Congestive Heart Failure Congestive Heart Failure Diagnosis No Cerebrovascular Accident CVA/TIA Diagnosis: No VTE (View Protocol) VTE Risk Factors Age>40 No Mechanical VTE Prophylaxis d/t Other No VTE Pharm Prophylaxis d/t Other Sepsis (View protocol) Sepsis Present: No Mike Wick 07/27/17 0457: Attending MD Review Statement Attending Statement Attending MD Statement: examined this patient, discuss w/resident/PA/WHARF ATTENDANT, agreed w/resident/PA/WHARF ATTENDANT, reviewed EMR data (avail), reviewed images, amended to note Attending Assessment/Plan: CC: Left arm pain PMH: DM, HTN, 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 Patient states that she gets left arm pain whenever she moves it. While in ER patient was found to be significantly hypotensive 82/48. Patient does not offer any other complaints other than left arm pain. Upon further probing patient admitted having diarrhea 2 days back approximately 4-5 watery stools, nonbloody and one episode of vomiting associated with nausea. She endorses markedly decreased appetite and decreased by mouth intake. She also had some blood in her sputum because of excessive dryness and cough, does not remember when was the last time she had blood in sputum, probably to 3 days back. Patient denies any chest pain, chest tightness, palpitations, difficulty breathing, abdominal pain, dizziness, nausea at present. According to [facility], they do not have any charting about patient's diarrhea. After her hospitalization in [facility] on June 28 for fall and left humerus fracture, patient was discharged to rehabilitation from where she had an episode of low blood pressure and low oxygen saturations for which she was transferred to [facility]. Patient 's warfarin was changed to daily Lovenox injections at that time for unclear cause. It facility patient actively participates in rehabilitation, ambulating with a wheelchair. According to [facility], patient appeared dehydrated yesterday and was given IV fluids in [facility]. Vitals: Afebrile, pulse 112, RR 20, blood pressure 82/48 on arrival at one point increased to 104/57, saturating 94% on 2 L nasal cannula. On exam: A O 3, cooperative, no acute distress, neck supple, JVD normal, no lymphadenopathy, mucosa extremely dry, no focal neurological deficit, left shoulder in sling, no dependent edema, no obvious skin rashes or inflammation , stage I pressure sore on sacrum, small bruise on left maxillary area, right knee and on abdomen CVS: S1-S2, RRR. RS: Clear to auscultate bilaterally. Abdomen: Soft, NT, ND, bowel sounds present. Labs: WBC 20.3, hemoglobin 8.6, hematocrit 26.1, platelet 378, neutrophils 90%, sodium 133, potassium 5.2, chloride 100, bicarbonate 21, BUN 50, creatinine 2.1, glucose 114, calcium 8.8, LFT unremarkable Right upper extremity duplex ultrasound: Normal venous ultrasound of the left upper extremity without evidence of deep vein thrombosis. CXR: Mild right basilar atelectasis. No definite evidence of pneumonia. Healing left proximal humerus fracture. CT abdomen and pelvis: 1. No evidence of nephrolithiasis or urinary tract obstruction. 2. Status post cholecystectomy with chronically dilated common bile duct; no evidence of choledocholithiasis 3. Colonic diverticulosis without diverticulitis. 4. Severe rotatory dextroscoliosis of the thoracic spine and levoscoliosis of the lumbar spine. 5. Chronic atelectasis within the lower lobes. 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 Patient has been running low blood pressure in the rehabilitation facility and was getting IV fluids, she received 1 L bolus before coming to ER. In ER patient 's blood pressure was 82/48, heart rate 122 afebrile and saturating well on 2 L. Exact reason of her hypotension was unclear, patient had diarrhea 2 days back with 5-6 watery stool, nonbloody, decreased by mouth intake. Patient was also found to have elevated creatinine to 2.1. Severe dehydration secondary to diarrhea and decreased by mouth intake may be precipitating low blood pressure and acute kidney injury. The same time patient has history of pulmonary embolism , currently on therapeutic INR, low index of suspicion for pulmonary embolism ( occasional hemoptysis probably secondary to dryness and cough). Patient doesn't have any chest pain, JVD is not elevated, no acute bleeding from rectum or any other hematomas noted as a cause for low blood pressure. Even though there is leukocytosis no obvious source of infection identified, patient does not have any urinary symptoms, chest x-ray unremarkable, CT abdomen and pelvis unremarkable. + Hypotension probably secondary to severe dehydration + ? Viral gastroenteritis, rule out C. 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 for persistent hypotension even with aggressive IV fluid resuscitation - Discontinue lisinopril - Continue rest of her home medications Update : Even with aggressive hydration, patient's blood pressure transiently improved to 118/ 66 then dropped to 88/53 again and oxygen saturation 80s (not a good reading because of low blood pressure), patient asymptomatic throughout. Patient was transferred to intensive care unit for closer monitoring of blood pressure and tachycardia. TTS 30 min Deanna Hogan 07/27/17 0458: Resident Review Statement Resident Statement: examined this patient, discussed with analysis intern, agreed with analysis intern, amended to note Other Findings: Ms Saenz is a 77 year old woman who was known to be in her usual state of health until four weeks ago. She has an acute fracture of left humerus neck , for which she was managed conservatively and discharged to a short-term rehabilitation. She was hospitalized at [facility], for the diagnosis of pulmonary embolism while on warfarin. She has a past medical history of type 2 diabetes, COPD (on nocturnal O2, when necessary), pulmonary embolism (2012), hypertension. She was brought to [facility] with a chief concern of worsening left arm pain, and also had several episodes of diarrhea, nonbloody in the last few days. She also reported decreased by mouth intake, and did not have any other symptoms such as lightheadedness or dizziness. No chest pain, palpitations, abdominal pain reported. W 10 reported that she had low blood pressure while in STR, and required IV normal saline boluses. No fever, dysuria, cough, back pain reported. At the time of admission, vitals-98.2, blood pressure 82/48 (improved to 90/54), pulse rate 122, respiration 20, 95% on 2 L oxygen. On examination- General Exam : AAOx3, No acute distress, Skin: No rashes, no breakdown, HEENT: PERRLA, EOMI, dry mucosa, Neck: Supple, No JVD No cervical lymphadenopathy CVS: Reg Rate, Normal S1,S2, No MGR, Resp: Normal air entry, no ronchi/rales , Abdomen: Soft, No tenderness, Normal Bowel Sounds, Neuro: Normal Speech, Strength 5/5 b/l x 4 extremities, Sensation intact, CN III -XII NL, Reflexes 2+ , Extremities: No cyanosis, no pedal edema, pulses symmetrical. RUE sling in place, limited abduction secondary to pain. Pertinent lab findings- wbc 20.3( w/ granulocytosis), Hb 8.6(baseline 8.8), HCT 26.1, platelets 378, Na 133, K 5.2, BUN 50, sr creatinine 2.1( baseline 0.9), Lactate 0.9, Mg 1.0. INR 1.24. UA- nitrites negative, ULE small, wbc 3-5. Troponin 0.01. Utox negative. CT abdomen- No evidence of nephrolithiasis or urinary tract obstruction. Status post cholecystectomy with chronically dilated common bile duct; no evidence of choledocholithiasis Colonic diverticulosis without diverticulitis. Severe rotatory dextroscoliosis of the thoracic spine and levoscoliosis of the lumbar spine. Chronic atelectasis within the lower lobes. Cxr- wnl. She likely has hypotension from hypovolemia, secondary to dehydration. FeNa 0.1, Ur Sod 7. Although P Na 133, I would think, that it is likely from ADH secretion due to recent stress, that might have diluted the p Na. Other possibilities, ADRIANA and hypotension is due to lisinopril use. She also has leucocytosis, w/ no clear focus of infection. Since, she had diarrhea, colitis is in the differential for which she was given a dose of ceftriaxone and flagyl emperically, since the Bp was low. Most importantly, PE needs to be ruled out, since she continues to be hypotensive, despite fluids. Plan- 1. Hypotension- Sepsis as per 2 SIRS. She was treated w/ iv fluids upto 5-6 L so far, with little urine out put which makes it difficult to interpret as far as a single etilogy alone- dehydration or infection. Continue fluids, and if unable to maintain MAP, would start pressors. Echocardiogram, and v/q scan for evaluation of PE. Continue abx peinding clutres. 2. Diabetes- hold oral hypoglycemics. TISS. 3. ADRIANA- likely pre-renal. Hold lisinopril. Check BEP in the am. 4. HTN and Hypothyroidism- hold antihypertensives. Continue LT4. Housekeping- 1. DVT PPx- Heparin iv for Tx of PE. 2. Pain pathway- avoid NSAIDs.
[2017-07-27 00:48] VITALS: BP 102/55
[2017-07-27 02:37] VITALS: BP 118/66
[2017-07-27 02:55] LABS: PT 12.7 SEC (9.4-12.5); PTT 22 SEC (25-37)
[2017-07-27 04:01] VITALS: BP 88/53
--- NOTE | 2017-07-27 04:12 | Event Note ---
Event Note Event Note: Ms Saenz was admitted on general medicine floor for further management of hypotension likely secondary to dehydration ( ADRIANA w/ sr cr 2.1, PNa 133, FeNa 0.1, Urine Sodium 7 ). Vitals at the time of admission 98.2, AK 122, RR 20, BP 82/48, 97 % RA. She received almost 5 litres of NS, w/ very little improvement in BP. HR 128, BP 83/53. Input 5L, Output 460 ml in approx 14hrs duration. Other differentials considered, PE ( since she had recent PE while on coumadin, although this history is not clear ), sepsis ( wbc 20.6 w/ no clear source of infection). She was transfered to the critical care unit for closer monitoring, especially qhr ly vitals checks, and pressors if needed. Informed the pts family. Discussed w/ the pt, that she might need a central line, who seemed anxious about a line. Reached out to the son, who defered the decision to the pt. Discussed the case w / Dr. Pelayo, to make sure if we are not missing anyother clues to the diagnosis ; decided to give her 2 more litres of fluid, and have a central line if blood pressure is not wnl. Relayed the information to the ICU team. Informed the attending tenoner operator.
[2017-07-27 04:57] LABS: ABSOLUTE BASOPHIL COUNT 0.1 /CUMM (0.0-0.2); ABSOLUTE EOSINOPHIL COUNT 0 /CUMM (0.0-0.7); ABSOLUTE GRANULOCYTE CT 10.4 /CUMM (1.4-6.5); ABSOLUTE LYMPH COUNT 1.1 /CUMM (1.2-3.4); ABSOLUTE MONOCYTE COUNT 1.2 /CUMM (0.10-0.60); BASOPHIL % 0.5 % (0.0-2.0); EOSINOPHIL % 0.3 % (0-5); GRANULOCYTE % 81.3 % (42.2-75.2); MEAN CORPUSCULAR HGB 31.5 PG (27.0-31.0); MEAN CORPUSCULAR HGB CONC 33.8 G/DL (33.0-37.0); MEAN CORPUSCULAR VOLUME 93.4 FL (81.0-99.0); MEAN PLATELET VOLUME 9.2 FL (7.4-10.4); PLATELET COUNT 307 /CUMM (130-400); RBC DISTRIBUTION WIDTH 14.5 % (11.5-14.5); WHITE BLOOD CELL COUNT 12.8 /CUMM (4.8-10.8)
--- NOTE | 2017-07-27 04:59 | Admission Certification ---
Admission Certification Certification Statement - As attending physician, I certify that at the time of - admission, based on clinical presentation, severity of - symptoms, need for further diagnostic testing and - therapeutic interventions, and risk of adverse outcomes - without in-hospital treatment, in my clinical assessment, - this patient requires an acute hospital stay for a minimum - of two nights or longer. I have also considered psychsocial - factors such as support system, advanced age, financial - issues, cognitive issues, and failed out-patient treatments, - past re-admission history, safety of patient, and lack of - compliance as applicable. Specific rationale supporting this admission is: Hypotension, severe dehydration, acute kidney injury
[2017-07-27 05:19] LABS: RED BLOOD CELL CT 1.83 /CUMM (4.20-5.40)
[2017-07-27 06:42] LABS: ABSOLUTE BASOPHIL COUNT 0 /CUMM (0.0-0.2); ABSOLUTE EOSINOPHIL COUNT 0 /CUMM (0.0-0.7); ABSOLUTE GRANULOCYTE CT 9.9 /CUMM (1.4-6.5); ABSOLUTE MONOCYTE COUNT 1.2 /CUMM (0.10-0.60); BASOPHIL % 0.3 % (0.0-2.0); EOSINOPHIL % 0.2 % (0-5); GRANULOCYTE % 81.3 % (42.2-75.2); MEAN CORPUSCULAR HGB 30.9 PG (27.0-31.0); MEAN CORPUSCULAR HGB CONC 32.7 G/DL (33.0-37.0); MEAN CORPUSCULAR VOLUME 94.3 FL (81.0-99.0); MEAN PLATELET VOLUME 9.3 FL (7.4-10.4); PLATELET COUNT 283 /CUMM (130-400); RBC DISTRIBUTION WIDTH 14.5 % (11.5-14.5); RED BLOOD CELL CT 1.74 /CUMM (4.20-5.40); WHITE BLOOD CELL COUNT 12.1 /CUMM (4.8-10.8)
[2017-07-27 06:49] LABS: HEMATOCRIT 16.4 % (37-47)
--- NOTE | 2017-07-27 08:14 | Cons- CRCU ---
Thomas Neumann 07/27/17 0814: General Information and HPI Consulting Request Date of Consult: 07/27/17 Requested By: Dr. Wick History of Present Illness: Ms. Saenz is a 77 yo f with a PMH significant for NIDDM, HTN, COPD on 2L home oxygen, hypothyroidism, chronic bilateral pedal edema, chronic pulmonary embolism was on Coumadin now on Lovenox came to ED for hypotension and dehydration. Patient reports that she has been having a poor appeptite and decreased water intake due to nausea. She is currently residing at [facility] because of a L humerus fracture after a mechanical fall. She was discharged from [facility] 1 week ago where she was treated for her L humerus fracture. She also reports she had diarrhea 3-4 days ago for 1 day. She does not recall why she was changed to Lovenox or if she had a recent PE while at [place]. She denies vomiting, palpitations, ESPINAL, blurry vision, fever, chills, abdominal pain, hematuria, bloody stools. Allergies/Medications Allergies: Coded Allergies: NO KNOWN ALLERGIES (09/22/14) Home Med List: Aspirin (Ecotrin*) 81 MG TABLET.DR 1 TAB PO DAILY HEART HEALTH (Reported) Enoxaparin Sodium (Lovenox) 120 MG/0.8 ML SYRINGE 120 MG SC DAILY BLOOD THINNER (Reported) Levothyroxine Sodium 25 MCG TABLET 2 TAB PO DAILY AC THYROID (Reported) Lisinopril 40 MG TABLET 1 TAB PO DAILY BP (Reported) Melatonin 3 MG TABLET 2 TAB PO QHS SLEEP (Reported) Oxycodone HCl 5 MG TABLET 1 TAB PO BID PAIN (Reported) Pantoprazole Sodium 40 MG TABLET.DR 1 TAB PO DAILY GI (Reported) Pravastatin Sodium 10 MG TABLET 1 TAB PO DAILY CHOLESTEROL (Reported) Sitagliptin Phosphate (Januvia) 50 MG TABLET 0.5 TAB PO DAILY DIABETES ( Reported) Sucralfate (Carafate) 1 GRAM TABLET 1 TAB PO 4 TIMES/DAY GI (Reported) Tramadol HCl (Ultram) 50 MG TABLET 1 TAB PO Q6P PRN PAIN (Reported) Current Medications: Current Medications Sig/Fanny Start time Last Medication Dose Route Stop Time Status Admin Acetaminophen 650 MG Q8P PRN 07/260 AC PO Albuterol Sulfate 3 ML Q4H PRN 07/26 2345 AC INH Aspirin Buffered 81 MG DAILY 07/27 1000 AC PO Ceftriaxone Sodium 1,000 MG 1000 07/27 1000 DC IV Ceftriaxone Sodium 1,000 MG 1000 07/27 0630 AC 07/27 IV 0701 Heparin Sodium 25,000 UNIT Q24H 07/27 0200 DC 07/27 (Porcine) IV 0326 Sodium Chloride 500 ML Insulin Aspart 0 TIDAC 07/27 0800 AC SC Insulin Aspart 0 TIDAC 07/27 0800 CAN SC Levothyroxine Sodium 0.05 MG DAILY AC 07/27 0700 DC PO Levothyroxine Sodium 0.05 MG DAILY AC 07/27 0700 AC 07/27 PO 0610 Lidocaine 1 PAT Q24H 07/26 2230 AC 07/27 EXT 0340 Magnesium Sulfate 1 GM ONCE ONE 07/26 1415 DC 07/26 Dextrose/Water 100 ML IV 07/26 1814 1622 Melatonin 6 MG AT BEDTIME 07/27 2200 AC PO Metronidazole 500 MG Q8 07/27 0600 AC 07/27 PO 0700 Omeprazole 40 MG DAILY AC 07/27 0700 AC 07/27 PO 0610 Oxycodone HCl 5 MG Q8P PRN 07/26 2230 AC PO Polyethylene Glycol 17 GM AT BEDTIME 07/27 2200 CAN PO Pravastatin Sodium 10 MG 1700 07/27 1700 AC PO Sodium Chloride 1,000 ML BOLUS ONE 07/27 1100 AC 07/27 IV 07/27 1159 1000 Sodium Chloride 1,000 ML BOLUS ONE 07/27 0500 DC 07/27 IV 07/27 0659 0701 Sodium Chloride 1,000 ML BOLUS ONE 07/27 0500 DC 07/27 IV 07/27 0659 0602 Sodium Chloride 1,000 ML Q10H 07/27 0145 DC 07/27 IV 07/27 0644 0155 Sodium Chloride 1,000 ML Q10H 07/26 2345 DC 07/27 IV 07/27 0944 0101 Sodium Chloride 1,000 ML BOLUS ONE 07/26 2230 DC 07/26 IV 07/26 2329 2225 Sodium Chloride 1,000 ML BOLUS ONE 07/26 2015 DC 07/26 IV 07/26 2114 2000 Sodium Chloride 1,000 ML BOLUS ONE 07/26 1745 DC 07/26 IV 07/26 1844 1750 Sodium Chloride 1,000 ML BOLUS ONE 07/26 1330 DC 07/26 IV 07/26 1429 1240 Tiotropium [place] 1 PUF DAILY PRN 07/27 1130 UNVr INH Review of Systems Review of Systems Constitutional: Reports: see HPI. 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 Acute Rehab Services at Home: Oxygen Primary Language: Spanish Smoking Status: Former Smoker ETOH Use: denies use Illicit Drug Use: denies illicit drug use Functional Ability ADLs Independent: dressing, eating, toileting, bathing. Ambulation: cane, walker IADLs Independent: shopping, housework, finances, food prep, telephone, transportation , medication admin. ECHO Results (as available) EF% 65 Exam & Diagnostic Data Last 24 Hrs of Vital Signs/I&O Vital Signs Date Time Temp Pulse Resp B/P B/P Pulse O2 O2 Flow FiO2 Mean Ox Delivery Rate 07/27 0800 96 Nasal 2.0L Cannula 07/27 0401 118 88/53 07/27 0237 97.6 123 20 118/66 99 Nasal 2.0L Cannula 07/27 0048 97.5 120 20 102/55 98 Nasal 2.0L Cannula 07/27 0000 96 Room Air 2.0L 07/26 2305 108 16 106/60 98 Room Air 07/26 2156 98.0 120 16 104/57 98 Nasal 2.0L Cannula 07/26 1928 110 16 90/54 95 Nasal 2.0L Cannula 07/26 1915 109 16 92/53 94 Nasal 2.0L Cannula 07/26 1829 97.5 109 16 95/52 93 Nasal 2.0L Cannula 07/26 1757 112 16 94/55 97 Nasal 2.0L Cannula 07/26 1740 115 16 84/52 97 Nasal 2.0L Cannula 07/26 1634 115 14 110/54 93 Room Air 07/26 1435 97.8 114 18 91/52 96 Nasal 2.0L Cannula 07/26 1330 114 18 92/54 97 Nasal 2.0L Cannula 07/26 1248 98.1 114 18 93/52 97 Nasal 2.0L Cannula 07/26 1219 112 18 101/55 94 Nasal 2.0L Cannula 07/26 1144 94 Nasal 2.0L Cannula 07/26 1130 114 20 92/50 93 Room Air Room Air Intake & Output 07/27 1600 07/27 0800 07/27 0000 Intake Total 3013.3 3000 Output Total 570 210 Balance 2443.3 2790 Intake, IV 2893.3 3000 Intake, Oral 120 Number 0 Bowel Movements Output, Urine 570 210 Patient 157 lb 157 lb Weight Weight Bed scale Measurement Method Physical Exam General Appearance: no apparent distress, alert, awake Head: atraumatic, normal appearance, BL ecchymosis beneath eyes Eyes: Bilateral: normal appearance, PERRL, EOMI. Ears, Nose, Throat: normal pharynx, normal ENT inspection, hearing grossly normal Neck: normal inspection, supple, full range of motion Respiratory: normal breath sounds, chest non-tender, no respiratory distress, lungs clear Cardiovascular: regular rate/rhythm Gastrointestinal: normal bowel sounds, soft, non-tender, no organomegaly Extremities: L sling in place. No hematoma or drainage Last 48 Hrs of Labs/Daniel: Laboratory Tests 07/27/17 0600: Renin Cancelled, Aldosterone Cancelled, ACTH Stimulation Cancelled 07/27/17 0550: CBC w Diff MAN DIFF ORDERED, RBC 1.74 L, MCV 94.3, MCH 30.9, RDW 14.5, MPV 9.3, Gran % 81.3 H, Lymphocytes % 8.6 L, Monocytes % 9.6 H, Eosinophils % 0.2, Basophils % 0.3, Absolute Granulocytes 9.9 H, Segmented Neutrophils Pending, Absolute Lymphocytes 1.0 L, Absolute Monocytes 1.2 H, Absolute Eosinophils 0, Absolute Basophils 0, PUBS MCHC 32.7 L 07/27/17 0400: Anion Gap 7, Estimated GFR 36 L, BUN/Creatinine Ratio 30.0 H, CBC w Diff NO MAN DIFF REQ, RBC 1.83 L, MCV 93.4, MCH 31.5 H, RDW 14.5, MPV 9.2, Gran % 81.3 H, Lymphocytes % 8.7 L, Monocytes % 9.2, Eosinophils % 0.3, Basophils % 0.5, Absolute Granulocytes 10.4 H, Absolute Lymphocytes 1.1 L, Absolute Monocytes 1.2 H, Absolute Eosinophils 0, Absolute Basophils 0.1, PUBS MCHC 33.8 07/27/17 0220: Lactate Dehydrogenase 291 L, Troponin I < 0.01, PT 12.7 H, INR 1.21 H, APTT 22 L 07/27/17 0152: Haptoglobin Pending 07/26/17 2309: Lactic Acid Cancelled 07/26/17 2226: Magnesium Cancelled, CBC w Diff Cancelled, WBC Cancelled, RBC Cancelled, Hgb Cancelled, Hct Cancelled, MCV Cancelled, MCH Cancelled, RDW Cancelled, Plt Count Cancelled, MPV Cancelled, PUBS MCHC Cancelled 07/26/17 2117: Lactic Acid 1.0 07/26/17 1622: Urine Color YEL, Urine Clarity HAZY H, Urine pH 5.0, Ur Specific [place] 1.025, Urine Protein TRACE H, Urine Ketones TRACE H, Urine Nitrite NEG, Urine Bilirubin NEG@ICTO, Urine Urobilinogen 1.0, Ur Leukocyte Esterase SMALL H, Ur Microscopic SEDIMENT EXAMINED, Urine RBC 1-3, Urine WBC 3-5 H, Ur Epithelial Cells MANY H, Urine Hemoglobin TRACE-INTACT, Urine Glucose NEG 07/26/17 1622: Urine Opiates Screen 281.00, Methadone Screen < 40, Barbiturate Screen < 60, Ur Phencyclidine Scrn < 6.00, Amphetamines Screen < 100, U Benzodiazepines Scrn < 85, Urine Cocaine Screen < 50, Urine Cannabis Screen < 5.00, Ur Random Creatinine 182.7, Ur Random Sodium 7 L, Ur Random Potassium 45.5, Fraction Sodium Excret 0.1 07/26/17 1130: Anion Gap 12, Estimated GFR 23 L, BUN/Creatinine Ratio 23.8, Glucose 114 H, Lactic Acid 1.9, Calcium 8.8, Magnesium 1.0 L, Total Bilirubin 0.6, AST 18, ALT 33, Alkaline Phosphatase 60, Troponin I 0.01, Total Protein 5.2 L, Albumin 3.1 L, Globulin 2.1, Albumin/Globulin Ratio 1.5, TSH 6.780 H, Cortisol AM Sample 41.4 H, CBC w Diff MAN DIFF ORDERED, RBC 2.79 L, MCV 93.6, MCH 30.8, RDW 14.4, MPV 9.3, Gran % 90.1 H, Lymphocytes % 2.9 L, Monocytes % 6.6, Eosinophils % 0, Basophils % 0.4, Absolute Granulocytes 18.3 H, Absolute Lymphocytes 0.6 L, Absolute Monocytes 1.3 H, Absolute Eosinophils 0, Absolute Basophils 0.1, Platelet Estimate ADEQUATE, Hypochromic-Microcytic 1+, Anisocytosis 1+, PUBS MCHC 32.9 L Microbiology 07/26 1622 URINE ROUT: Urine Culture - COMP Diagnostic Data CXR Results 07/27/17-103 US-EXT BILAT VENOUS DOPPLER FINDINGS: Respiratory variation, normal compression and color flow are noted throughout the lower extremities. The visualized common femoral vein, femoral vein, profunda femoral vein, popliteal vein show no evidence of deep venous thrombosis. The calf veins were not well visualized. There is no Moran's cyst. IMPRESSION: No evidence of deep venous thrombosis within either lower extremity. 07/27/17 XRY-PORTABLE CHEST XRAY FINDINGS: Right IJ catheter tip at the cavoatrial junction. No pneumothorax. No acute abnormality. Lungs clear. No pulmonary vascular congestion. No infiltrate. Dextroscoliosis of mid thoracic spine. 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 No pneumothorax. Assessment/Plan Impression/Plan: Ms. Saenz is a 77 yo f with a PMH significant for PE currently on Lovenox and a L humerus fracture after a mechanical fall without any active bleeding, admitted to ICU for close monitoring of hypotension. Hypotension and tachycardia most likely 2/2 dehydration On admission she was given aggressive fluid management with little improvement. She is reluctant to get a central line though she was made aware of her BP dropping to 60s. Patient later agreed to central line placement after discussion with family at bedside * Monitor vitals, goal MAP > 65 * Hold home antihypertensives * CXR to confirm central line placement Leukocytosis without bandemia or fever * Monitor white count * Continue Ceftriaxone * Follow up panculture results ADRIANA most likely 2/2 hypovolemia Patient clinical picture appears to be prerenal (BUN/Cr>30, FENa<1%, UrNa: 7) in the setting of hypotension * Continue NS IVF Chronic PE Patient has a history of VTE and she was initially treated with Coumadin but it was changed to Lovenox but it is unclear why. Her records have been requested from [place] to see if patient had a recent PE while being treated at [facility] for her L humerus fracture. If she in fact did have a recurrent PE while on anticoagulation, an IVC filter should be considered. * Hold Heparin due to severe anemia * Obtain [facility] records for July 2017 hospitalization * Monitor H&H * BLE doppler to r/o DVT * Vascular recommendations appreciated Anemia She was transfused 2U prbcs. CT abd showed Colonic diverticulosis without diverticulitis. She has not had any hematemesis or bloody stools so it it unclear where the patient is bleeding from. She was on Heparin which can contribute to the drop in H&H and it has been held. * Monitor H&H, goal hgb > 7, transfuse if necessary * GI recommendations appreciated Hypomagnesemia * Monitor and replete PRN History of NIDDM, HTN, COPD, Hypothyroidism, L humerus fx Her Wrist Liner is Dr. Baudilio Grace ([place]) * Continue home meds except oral hypoglycemic agents * Accuchecks and Novolog SS * TRC/nebs, oxygen supplementation PRN DVT ppx: ALPS due to low hgb Consult Acknowledgment - Thank you for your consult request. Fidencio Pelayo MD 07/27/17 0846: Assessment/Plan Other Findings/Comments: Impression 77 year old woman * Diarrhea few days ago, poor po intake, brought to the ICU secondary to hypotension that is secondary to presumed hypovolemia supported by ADRIANA which is likely prerenal, not on pressors hence not in shock at this time * She has a new finding of severe anemia - unclear if blood loss * [facility] admit 1 wk ago (humerus fracture) - ?PE at that time - on Lovenox * Chronic PE since 2013 on coumadin (but recently on lovenox) * COPD on home oxygen * chronic atelectasis * mild leukocytosis is improved, possible colitis could have been gastroenteritis Plan - 7 Liters of fluids have been given, BP goal >65 MAP - has been reluctant overnight to receive central access, BP is currently borderline but stable, would compliance counsel patient on receiving central access in anticipation of a central access - empiric abx for now - flagyl and ceftriaxone - c.diff, stool cx etc have been sent - will follow - incentive spirometry (recent humerus fracture) - sling - at least 2 units prbcs now - repeat ct chest/abd/pelvis to rule out any retroperitoneal or other bleeds, given heparin use if the hemoglobin does not improve with transfusions - guiaiac, gi consultation - now evidence of any bleeding at the fracture site - hold heparin, check LE dopplers, get records from [facility], given chronic PE will need to evaluate need for an IVC filter - please call vascular surgery now - ECHO - creatinine significantly improved - no evidence of obstruction on CT, will hold of renal consultation for now and continue to hydrate ALPS for DVT prophylaxis at all times TTS 50 min Consult Acknowledgment - Thank you for your consult request.
--- NOTE | 2017-07-27 10:53 | Event Note ---
Event Note Event Note: Ms Saenz was initially admitted on general medicine floor for further management of hypotension likely secondary to dehydration. She was transferred to ICU for close monitoring of vitals Patient SBP 60s after 9L NS IVF. Patient was informed she will need a central line. Patient refused at moment, request to be managed conservatively. Son- Hardy was called to make him aware of mother's current state and need for central line. He states he will come to within 1 hr to discuss with mother need for central line and make a decision at that point.
--- NOTE | 2017-07-27 12:02 | Cons- Gastroenterology ---
General Information and HPI Consulting Request Date of Consult: 07/27/17 Requested By: Mike Wick MD Reason for Consult: Anemia Source of Information: patient History of Present Illness: The patient was found to be severely anemic and has been transfused and moved to the ICU. The patient has been hypotensive. She was anticoagulated. There is no prior GI bleeding history, and she denies significant or recurrent heartburn, indigestion/dyspepsia, dysphagia, nausea, abdominal pain. Bowel movements have largely been regular, there is no history of melena or bright red blood per rectum. She had a remote colonoscopy, perhaps 10 years ago, in [place]. Allergies/Medications Allergies: Coded Allergies: NO KNOWN ALLERGIES (09/22/14) Home Med List: Aspirin (Ecotrin*) 81 MG TABLET.DR 1 TAB PO DAILY HEART HEALTH (Reported) Enoxaparin Sodium (Lovenox) 120 MG/0.8 ML SYRINGE 120 MG SC DAILY BLOOD THINNER (Reported) Levothyroxine Sodium 25 MCG TABLET 2 TAB PO DAILY AC THYROID (Reported) Lisinopril 40 MG TABLET 1 TAB PO DAILY BP (Reported) Melatonin 3 MG TABLET 2 TAB PO QHS SLEEP (Reported) Oxycodone HCl 5 MG TABLET 1 TAB PO BID PAIN (Reported) Pantoprazole Sodium 40 MG TABLET.DR 1 TAB PO DAILY GI (Reported) Pravastatin Sodium 10 MG TABLET 1 TAB PO DAILY CHOLESTEROL (Reported) Sitagliptin Phosphate (Januvia) 50 MG TABLET 0.5 TAB PO DAILY DIABETES ( Reported) Sucralfate (Carafate) 1 GRAM TABLET 1 TAB PO 4 TIMES/DAY GI (Reported) Tramadol HCl (Ultram) 50 MG TABLET 1 TAB PO Q6P PRN PAIN (Reported) Current Medications: Current Medications Sig/Fanny Start time Last Medication Dose Route Stop Time Status Admin Acetaminophen 650 MG Q8P PRN 07/26 2230 AC PO Albuterol Sulfate 3 ML Q4H PRN 07/26 2345 AC INH Aspirin Buffered 81 MG DAILY 07/27 1000 AC PO Ceftriaxone Sodium 1,000 MG 1000 07/27 1000 DC IV Ceftriaxone Sodium 1,000 MG 1000 07/27 0630 AC 07/27 IV 0701 Heparin Sodium 25,000 UNIT Q24H 07/27 0200 DC 07/27 (Porcine) IV 0326 Sodium Chloride 500 ML Insulin Aspart 0 TIDAC 07/27 0800 AC SC Insulin Aspart 0 TIDAC 07/27 0800 CAN SC Levothyroxine Sodium 0.05 MG DAILY AC 07/27 0700 DC PO Levothyroxine Sodium 0.05 MG DAILY AC 07/27 0700 AC 07/27 PO 0610 Lidocaine 1 PAT Q24H 07/26 2230 AC 07/27 EXT 0340 Magnesium Sulfate 1 GM ONCE ONE 07/26 1415 DC 07/26 Dextrose/Water 100 ML IV 07/26 1814 1622 Melatonin 6 MG AT BEDTIME 07/27 2200 AC PO Metronidazole 500 MG Q8 07/27 0600 AC 07/27 PO 0700 Omeprazole 40 MG DAILY AC 07/27 0700 AC 07/27 PO 0610 Oxycodone HCl 5 MG Q8P PRN 07/26 2230 AC PO Polyethylene Glycol 17 GM AT BEDTIME 07/27 2200 CAN PO Pravastatin Sodium 10 MG 1700 07/27 1700 AC PO Sodium Chloride 1,000 ML BOLUS ONE 07/27 1100 AC 07/27 IV 07/27 1159 1000 Sodium Chloride 1,000 ML BOLUS ONE 07/27 0500 DC 07/27 IV 07/27 0659 0701 Sodium Chloride 1,000 ML BOLUS ONE 07/27 0500 DC 07/27 IV 07/27 0659 0602 Sodium Chloride 1,000 ML Q10H 07/27 0145 DC 07/27 IV 07/27 0644 0155 Sodium Chloride 1,000 ML Q10H 07/26 2345 DC 07/27 IV 07/27 0944 0101 Sodium Chloride 1,000 ML BOLUS ONE 07/26 2230 DC 07/26 IV 07/26 2329 2225 Sodium Chloride 1,000 ML BOLUS ONE 07/26 2015 DC 07/26 IV 07/26 2114 2000 Sodium Chloride 1,000 ML BOLUS ONE 07/26 1745 DC 07/26 IV 07/26 1844 1750 Sodium Chloride 1,000 ML BOLUS ONE 07/26 1330 DC 07/26 IV 07/26 1429 1240 Tiotropium [place] 1 PUF DAILY PRN 07/27 1130 UNVr INH Past History Travel History Traveled to [place] past 21 day No Medical History Blood Transfusion Hx: No Neurological: NONE EENT: NONE Cardiovascular: hyperlipidemia Respiratory: COPD Gastrointestinal: NONE Hepatic: NONE Renal: NONE Musculoskeletal: ARTHRITIS R HUMERUS FX 06/28/17 Psychiatric: NONE Endocrine: diabetes, hypothyroidism Blood Disorders: PE Cancer(s): NONE 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 Acute Rehab Services at Home: Oxygen Primary Language: Albanian Smoking Status: Former Smoker ETOH Use: denies use Illicit Drug Use: denies illicit drug use Functional Ability ADLs Independent: dressing, eating, toileting, bathing. Ambulation: cane, walker IADLs Independent: shopping, housework, finances, food prep, telephone, transportation , medication admin. ECHO Results (as available) EF% 65 Review of Systems Review of Systems Constitutional: Denies: chills, fever. EENTM: Denies: icterus, epistaxis. Cardiovascular: Denies: chest pain, syncope. Respiratory: Reports: short of breath. Denies: cough. GI: Reports: see HPI. Genitourinary: Denies: discharge, hematuria. Musculoskeletal: Denies: muscle stiffness, neck pain. Skin: Denies: jaundice, lesions. Neurological/Psychological: Denies: cognitive dysfunction, confusion. Hematologic/Endocrine: Denies: bruising, bleeding. Exam & Diagnostic Data Vital Signs and I&O Vital Signs Date Time Temp Pulse Resp B/P B/P Pulse O2 O2 Flow FiO2 Mean Ox Delivery Rate 07/27 0800 96 Nasal 2.0L Cannula 07/27 0401 118 88/53 07/27 0237 97.6 123 20 118/66 99 Nasal 2.0L Cannula 07/27 0048 97.5 120 20 102/55 98 Nasal 2.0L Cannula 07/27 0000 96 Room Air 2.0L 07/26 2305 108 16 106/60 98 Room Air 07/26 2156 98.0 120 16 104/57 98 Nasal 2.0L Cannula 07/26 1928 110 16 90/54 95 Nasal 2.0L Cannula 07/26 1915 109 16 92/53 94 Nasal 2.0L Cannula 07/26 1829 97.5 109 16 95/52 93 Nasal 2.0L Cannula 07/26 1757 112 16 94/55 97 Nasal 2.0L Cannula 07/26 1740 115 16 84/52 97 Nasal 2.0L Cannula 07/26 1634 115 14 110/54 93 Room Air 07/26 1435 97.8 114 18 91/52 96 Nasal 2.0L Cannula 07/26 1330 114 18 92/54 97 Nasal 2.0L Cannula 07/26 1248 98.1 114 18 93/52 97 Nasal 2.0L Cannula 07/26 1219 112 18 101/55 94 Nasal 2.0L Cannula Intake & Output 07/27 1600 07/27 0400 07/26 1600 07/26 0400 07/25 1600 07/25 0400 Intake Total 3013.3 3000 1000 Output Total 570 210 Balance 2443.3 2790 1000 Intake, IV 2893.3 3000 1000 Intake, Oral 120 Number 0 Bowel Movements Output, Urine 570 210 Patient 157 lb 144 lb Weight Weight Bed scale Reported by Patient Measurement Method Physical Exam: Well-developed well-nourished, or distress. Alert and oriented. Skin without lesion. No jaundice or stigmata of chronic liver disease. Sclera anicteric. No oropharyngeal lesion. Neck supple without thyromegaly. Heart regular rhythm. Lungs clear. Abdomen soft and nondistended with normal bowel sounds, and no tenderness, mass or organomegaly. Extremities without edema. Distal pulses intact. Results Pertinent Lab Results: Laboratory Tests 07/27 07/27 0600 0550 Chemistry Renin Cancelled Aldosterone Cancelled ACTH Stimulation Cancelled Hematology CBC w Diff MAN DIFF ORDERED WBC (4.8 - 10.8 /CUMM) 12.1 H RBC (4.20 - 5.40 /CUMM) 1.74 L Hgb (12.0 - 16.0 G/DL) 5.4 *L Hct (37 - 47 %) 16.4 *L MCV (81.0 - 99.0 FL) 94.3 MCH (27.0 - 31.0 PG) 30.9 RDW (11.5 - 14.5 %) 14.5 Plt Count (130 - 400 /CUMM) 283 MPV (7.4 - 10.4 FL) 9.3 Gran % (42.2 - 75.2 %) 81.3 H Lymphocytes % (20.5 - 51.1 %) 8.6 L Monocytes % (1.7 - 9.3 %) 9.6 H Eosinophils % (0 - 5 %) 0.2 Basophils % (0.0 - 2.0 %) 0.3 Absolute Granulocytes (1.4 - 6.5 /CUMM) 9.9 H Segmented Neutrophils (42.2 - 75.2 %) Pending Absolute Lymphocytes (1.2 - 3.4 /CUMM) 1.0 L Absolute Monocytes (0.10 - 0.60 /CUMM) 1.2 H Absolute Eosinophils (0.0 - 0.7 /CUMM) 0 Absolute Basophils (0.0 - 0.2 /CUMM) 0 PUBS MCHC (33.0 - 37.0 G/DL) 32.7 L 07/27 07/27 07/27 0400 0220 0152 Chemistry Sodium (137 - 145 mmol/L) 136 L Potassium (3.5 - 5.1 mmol/L) 4.5 Chloride (98 - 107 mmol/L) 111 H Carbon Dioxide (22 - 30 mmol/L) 18 L Anion Gap (5 - 16) 7 BUN (7 - 17 mg/dL) 42 H Creatinine (0.5 - 1.0 mg/dL) 1.4 H Estimated GFR (>60 ml/min) 36 L BUN/Creatinine Ratio (7 - 25 %) 30.0 H Lactate Dehydrogenase (313 - 618 U/L) 291 L Troponin I (< 0.11 ng/ml) < 0.01 Coagulation PT (9.4 - 12.5 SEC) 12.7 H INR (0.90 - 1.19) 1.21 H APTT (25 - 37 SEC) 22 L Hematology CBC w Diff NO MAN DIFF REQ WBC (4.8 - 10.8 /CUMM) 12.8 H RBC (4.20 - 5.40 /CUMM) 1.83 L Hgb (12.0 - 16.0 G/DL) 5.8 *L Hct (37 - 47 %) 17.0 *L MCV (81.0 - 99.0 FL) 93.4 MCH (27.0 - 31.0 PG) 31.5 H RDW (11.5 - 14.5 %) 14.5 Plt Count (130 - 400 /CUMM) 307 MPV (7.4 - 10.4 FL) 9.2 Gran % (42.2 - 75.2 %) 81.3 H Lymphocytes % (20.5 - 51.1 %) 8.7 L Monocytes % (1.7 - 9.3 %) 9.2 Eosinophils % (0 - 5 %) 0.3 Basophils % (0.0 - 2.0 %) 0.5 Absolute Granulocytes (1.4 - 6.5 /CUMM) 10.4 H Absolute Lymphocytes (1.2 - 3.4 /CUMM) 1.1 L Absolute Monocytes (0.10 - 0.60 /CUMM) 1.2 H Absolute Eosinophils (0.0 - 0.7 /CUMM) 0 Absolute Basophils (0.0 - 0.2 /CUMM) 0.1 PUBS MCHC (33.0 - 37.0 G/DL) 33.8 Haptoglobin Pending 07/26 07/26 07/26 2309 2226 2117 Chemistry Lactic Acid (0.7 - 2.1 mmol/L) Cancelled 1.0 Magnesium Cancelled Hematology CBC w Diff Cancelled WBC Cancelled RBC Cancelled Hgb Cancelled Hct Cancelled MCV Cancelled MCH Cancelled RDW Cancelled Plt Count Cancelled MPV Cancelled PUBS MCHC Cancelled 07/26 07/26 1622 1622 Toxicology Urine Opiates Screen (>2000 NG/ML) 281.00 Methadone Screen (>300 NG/ML) < 40 Barbiturate Screen (>200 NG/ML) < 60 Ur Phencyclidine Scrn (>25 NG/ML) < 6.00 Amphetamines Screen (>1000 NG/ML) < 100 U Benzodiazepines Scrn (>200 NG/ML) < 85 Urine Cocaine Screen (>300 NG/ML) < 50 Urine Cannabis Screen (>50 NG/ML) < 5.00 Urines Urine Color (YEL,AMB,STR) YEL Urine Clarity (CLEAR) HAZY H Urine pH (5.0 - 8.0) 5.0 Ur Specific [place] (1.001 - 1.035) 1.025 Urine Protein (NEG,<30 MG/DL) TRACE H Urine Ketones (NEG) TRACE H Urine Nitrite (NEG) NEG Urine Bilirubin (NEG) NEG@ICTO Urine Urobilinogen (0.1 - 1.0 EU/dl) 1.0 Ur Leukocyte Esterase (NEG) SMALL H Ur Microscopic SEDIMENT EXAMINED Urine RBC (0 - 5 /HPF) 1-3 Urine WBC (0 - 2 /HPF) 3-5 H Ur Epithelial Cells (NONE,FEW) MANY H Urine Hemoglobin (NEG) TRACE-INTACT Ur Random Creatinine (mg/dL) 182.7 Ur Random Sodium (30 - 90 mmol/L) 7 L Ur Random Potassium (mmol/L) 45.5 Fraction Sodium Excret (<1% %) 0.1 Urine Glucose (N MG/DL) NEG 07/26 1130 Chemistry Sodium (137 - 145 mmol/L) 133 L Potassium (3.5 - 5.1 mmol/L) 5.2 H Chloride (98 - 107 mmol/L) 100 Carbon Dioxide (22 - 30 mmol/L) 21 L Anion Gap (5 - 16) 12 BUN (7 - 17 mg/dL) 50 H Creatinine (0.5 - 1.0 mg/dL) 2.1 H Estimated GFR (>60 ml/min) 23 L BUN/Creatinine Ratio (7 - 25 %) 23.8 Glucose (65 - 99 mg/dL) 114 H Lactic Acid (0.7 - 2.1 mmol/L) 1.9 Calcium (8.4 - 10.2 mg/dL) 8.8 Magnesium (1.6 - 2.3 mg/dL) 1.0 L Total Bilirubin (0.2 - 1.3 mg/dL) 0.6 AST (14 - 36 U/L) 18 ALT (9 - 52 U/L) 33 Alkaline Phosphatase (<127 U/L) 60 Troponin I (< 0.11 ng/ml) 0.01 Total Protein (6.3 - 8.2 g/dL) 5.2 L Albumin (3.5 - 5.0 g/dL) 3.1 L Globulin (1.9 - 4.2 gm/dL) 2.1 Albumin/Globulin Ratio (1.1 - 2.2 %) 1.5 TSH (0.270 - 4.200 uIU/mL) 6.780 H Cortisol AM Sample (4.46 - 22.7 ug/dL) 41.4 H Hematology CBC w Diff MAN DIFF ORDERED WBC (4.8 - 10.8 /CUMM) 20.3 H RBC (4.20 - 5.40 /CUMM) 2.79 L Hgb (12.0 - 16.0 G/DL) 8.6 L Hct (37 - 47 %) 26.1 L MCV (81.0 - 99.0 FL) 93.6 MCH (27.0 - 31.0 PG) 30.8 RDW (11.5 - 14.5 %) 14.4 Plt Count (130 - 400 /CUMM) 378 MPV (7.4 - 10.4 FL) 9.3 Gran % (42.2 - 75.2 %) 90.1 H Lymphocytes % (20.5 - 51.1 %) 2.9 L Monocytes % (1.7 - 9.3 %) 6.6 Eosinophils % (0 - 5 %) 0 Basophils % (0.0 - 2.0 %) 0.4 Absolute Granulocytes (1.4 - 6.5 /CUMM) 18.3 H Absolute Lymphocytes (1.2 - 3.4 /CUMM) 0.6 L Absolute Monocytes (0.10 - 0.60 /CUMM) 1.3 H Absolute Eosinophils (0.0 - 0.7 /CUMM) 0 Absolute Basophils (0.0 - 0.2 /CUMM) 0.1 Platelet Estimate (ADEQUATE) ADEQUATE Hypochromic-Microcytic 1+ Anisocytosis 1+ PUBS MCHC (33.0 - 37.0 G/DL) 32.9 L Imaging/Other Studies: CT scan yesterday IMPRESSION: 1. No evidence of nephrolithiasis or urinary tract obstruction. 2. Status post cholecystectomy with chronically dilated common bile duct; no evidence of choledocholithiasis 3. Colonic diverticulosis without diverticulitis. 4. Severe rotatory dextroscoliosis of the thoracic spine and levoscoliosis of the lumbar spine. 5. Chronic atelectasis within the lower lobes. Assessment/Plan Assessment/Recommendations: Anemia, hypotension. No overt GI bleeding (hematemesis, melena, hematochezia). The anemia is at least partially hemodilutional. Recommendations * Agree with transfusion of 2 units of packed red blood cells, and repeating CBC following transfusion, and twice daily afterwards * If no appropriate response to transfusion, agree with repeating CT scan of the abdomen and pelvis, and also with insertion of nasogastric tube to assess for evidence of upper GI bleeding. * Empiric PPI twice a day for now * Decision whether to anticoagulate deferred to Dr. Pelayo * At this point it is premature to consider endoscopic evaluation. Consult Acknowledgment - Thank you for your consult request.
--- NOTE | 2017-07-27 12:50 | ULTRASOUND REPORT ---
EXAMINATION: US TRIPLEX OF LOWER EXTREMITIES, BILATERAL CLINICAL INFORMATION: History of PE and DVT, prolonged immobility COMPARISON: Venous Doppler ultrasound from 06/26/2013 TECHNIQUE: Color-flow triplex imaging with spectral analysis and compression Doppler were performed on the lower extremities. Augmentation maneuver was not performed. FINDINGS: Respiratory variation, normal compression and color flow are noted throughout the lower extremities. The visualized common femoral vein, femoral vein, profunda femoral vein, popliteal vein show no evidence of deep venous thrombosis. The calf veins were not well visualized. There is no Moran's cyst. IMPRESSION: No evidence of deep venous thrombosis within either lower extremity.
[2017-07-27 16:00] VITALS: BP 102/60
--- NOTE | 2017-07-27 16:21 | RADIOLOGY REPORT ---
EXAMINATION: XR PORTABLE CHEST CLINICAL INFORMATION: Central line placement. Hypotension. COMPARISON: Chest x-ray 07/26/2017 TECHNIQUE: Portable frontal view of the chest was obtained. 3:55 PM FINDINGS: Right IJ catheter tip at the cavoatrial junction. No pneumothorax. No acute abnormality. Lungs clear. No pulmonary vascular congestion. No infiltrate. Dextroscoliosis of mid thoracic spine. 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 No pneumothorax.
[2017-07-27 16:54] LABS: ABSOLUTE BASOPHIL COUNT 0 /CUMM (0.0-0.2); ABSOLUTE EOSINOPHIL COUNT 0 /CUMM (0.0-0.7); ABSOLUTE GRANULOCYTE CT 10.7 /CUMM (1.4-6.5); ABSOLUTE LYMPH COUNT 0.8 /CUMM (1.2-3.4); ABSOLUTE MONOCYTE COUNT 0.9 /CUMM (0.10-0.60); BASOPHIL % 0.2 % (0.0-2.0); EOSINOPHIL % 0.1 % (0-5); MEAN CORPUSCULAR HGB 30.2 PG (27.0-31.0); MEAN CORPUSCULAR HGB CONC 33.4 G/DL (33.0-37.0); MEAN CORPUSCULAR VOLUME 90.3 FL (81.0-99.0); MEAN PLATELET VOLUME 8.8 FL (7.4-10.4); WHITE BLOOD CELL COUNT 12.5 /CUMM (4.8-10.8)
[2017-07-27 16:58] LABS: HEMATOCRIT 22.4 % (37-47); RED BLOOD CELL CT 2.48 /CUMM (4.20-5.40)
[2017-07-27 17:03] LABS: PTT 27 SEC (25-37)
[2017-07-27 17:11] LABS: PLATELET COUNT 257 /CUMM (130-400)
--- NOTE | 2017-07-27 18:23 | Proc Note Internal Medicine ---
Medicine Procedure Procedure Date: 07/27/17 Medical Procedure(s): central venous cath place Pre-Operative Diagnosis: Hypotension Post-Operative Diagnosis: Hypotension Estimated Blood Loss: scant Anesthesia: none Procedure Findings: Indication: Hemodynamic instability/Central Intravenous access for pressor and rapid fluid resuscitation. Consent was obtained. A time-out was completed verifying correct patient, procedure, site, positioning, and equipment. The patient was placed in a dependent position appropriate for central line placement. The patients right neck was prepped and draped in sterile fashion. 1% Lidocaine was used to anesthetize the surrounding skin area. A triple lumen 7-Persian Arrow catheter was introduced into the the Right Internal Jugular vein using the Seldinger technique and under ultrasound guidance. A small incision was made in the patients skin with a scalpel and the skin was dilated. The catheter was then threaded smoothly over the guide wire, and the guidewire removed. Appropriate blood return was obtained from each port of the catheter. Each lumen of the catheter was flushed with sterile saline, and a biopatch was placed and the catheter sutured in place to the skin and a sterile dressing applied. Estimated Blood Loss: <5 mL The patient tolerated the procedure well and there were no complications. A CXR to identify location was orderd and cofirmed proper placement w/o pneumothorax.
[2017-07-28] VITALS: BP 94/50
[2017-07-28 04:18] LABS: ABSOLUTE BASOPHIL COUNT 0.1 /CUMM (0.0-0.2); ABSOLUTE EOSINOPHIL COUNT 0.1 /CUMM (0.0-0.7); ABSOLUTE GRANULOCYTE CT 10.4 /CUMM (1.4-6.5); ABSOLUTE LYMPH COUNT 1.1 /CUMM (1.2-3.4); ABSOLUTE MONOCYTE COUNT 1.2 /CUMM (0.10-0.60); BASOPHIL % 0.4 % (0.0-2.0); EOSINOPHIL % 0.5 % (0-5); GRANULOCYTE % 80.9 % (42.2-75.2); MEAN CORPUSCULAR HGB CONC 33.2 G/DL (33.0-37.0); MEAN CORPUSCULAR VOLUME 90.3 FL (81.0-99.0); MEAN PLATELET VOLUME 8.2 FL (7.4-10.4); PLATELET COUNT 258 /CUMM (130-400); RBC DISTRIBUTION WIDTH 15.6 % (11.5-14.5); RED BLOOD CELL CT 2.66 /CUMM (4.20-5.40); WHITE BLOOD CELL COUNT 12.8 /CUMM (4.8-10.8)
[2017-07-28 08:00] VITALS: BP 130/62
--- NOTE | 2017-07-28 09:12 | PN- Resident CRCU ---
Subjective HPI/CRCU Issues: Hypotension - stable ADRIANA - resolved 24 Hour Events: Patient had no complaints or events overnight. Her SBP stable above 110s. Objective Vital Signs & I&O Last 8 Hrs of Vitals and I&O: Intake & Output 07/28 1600 Intake Total 1551 Output Total 650 Balance 901 Intake, IV 651 Intake, Oral 900 Number 0 Bowel Movements Output, Urine 650 Exam General Appearance: well developed/nourished, no apparent distress, alert, awake , comfortable Head: atraumatic, normal appearance Ears, Nose, Throat: normal pharynx, normal ENT inspection, hearing grossly normal Neck: normal inspection, supple, full range of motion Respiratory: normal breath sounds, chest non-tender, no respiratory distress, lungs clear Cardiovascular: regular rate/rhythm Gastrointestinal: normal bowel sounds, soft, non-tender, no organomegaly Extremities: Ecchymosis on medial aspect on L promixal ext Skin: ecchymosis Current Medications: Current Medications Sig/Fanyn Start time Last Medication Dose Route Stop Time Status Admin Acetaminophen 650 MG Q8P PRN 07/26 2230 AC PO Albuterol Sulfate 3 ML Q4H PRN 07/26 2345 AC INH Aspirin Buffered 81 MG DAILY 07/27 1000 AC 07/28 PO 1000 Ceftriaxone Sodium 1,000 MG 1000 07/27 0630 AC 07/28 IV 1000 Insulin Aspart 0 TIDAC 07/27 0800 AC 07/28 SC 1200 Levothyroxine Sodium 0.05 MG DAILY AC 07/27 0700 AC 07/28 PO 0721 Lidocaine 1 PAT 0800 07/28 0800 AC 07/28 EXT 0800 Lidocaine 1 PAT Q24H 07/26 2230 DC 07/27 EXT 0340 Lorazepam 0.25 MG Q4P PRN 07/27 1415 AC 07/27 IV 1414 Magnesium Sulfate 1 GM Q2H 07/27 1745 DC 07/27 Dextrose/Water 100 ML IV 07/27 2144 1925 Melatonin 6 MG AT BEDTIME 07/27 2200 AC 07/27 PO 2210 Metronidazole 500 MG Q8 07/27 0600 AC 07/28 PO 1338 Norepinephrine 4 MG Q24H 07/28 0130 AC Sodium Chloride 250 ML IV Norepinephrine 4 MG Q24H 07/27 2245 DC 07/28 Sodium Chloride 250 ML IV 0040 Omeprazole 40 MG DAILY AC 07/27 0700 AC 07/28 PO 0721 Oxycodone HCl 5 MG Q8P PRN 07/26 2230 AC PO Pravastatin Sodium 10 MG 1700 07/27 1700 AC 07/28 PO 1649 Sodium Chloride 1,000 ML Q20H 07/27 1745 DC 07/27 IV 07/28 1344 1750 Tiotropium [place] 1 PUF DAILY 07/27 1130 AC 07/28 INH 1000 Impression/Plan Impression/Problem List Impression: Ms. Saenz is a 77 yo f with a PMH significant for PE currently on Lovenox and a L humerus fracture after a mechanical fall without any active bleeding, admitted to ICU for close monitoring of hypotension. Respiratory: Chronic PE Patient has a history of VTE and she was initially treated with Coumadin but it was changed to Lovenox but it is unclear why. Her records have been requested from [place] to see if patient had a recent PE while being treated at [facility] for her L humerus fracture. If she in fact did have a recurrent PE while on anticoagulation, an IVC filter should be considered. A BLE doppler was done that was neagative for DVT. * Hold Heparin due to severe anemia * Awaiting [place] records for July 2017 hospitalization * Monitor H&H * Vascular recommendations appreciated * TRC/nebs, oxygen supplementation PRN ID: Leukocytosis without bandemia Her white count is currently stable and she remains afebrile. Her blood cultures remained negative * Monitor white count * Continue Ceftriaxone CVS: Hypotension and tachycardia most likely 2/2 dehydration On admission she was given aggressive fluid management with little improvement. She was initially reluctant have a central line though she was made aware of her BP dropping to 60s/doppler at the time. Patient later agreed to central line placement after discussion with family at bedside * Monitor vitals * Titrate Levophed, goal MAP > 65 * Hold home antihypertensives * ECHO to r/o SHD or valvular abnormalities Hematology: Normocytic Anemia She was transfused 3U prbcs. CT abd showed Colonic diverticulosis without diverticulitis. She has not had any hematemesis or bloody stools so it it unclear if it's 2/2 acute blood loss. She was on Heparin which most likely contributed to her drop in H&H. * Monitor H&H, goal hgb > 8, transfuse if necessary * GI recommendations appreciated Metabolic: Hypomagnesemia * Monitor and replete PRN Nephrology: ADRIANA most likely 2/2 hypovolemia - resolved Patient clinical picture appears to be prerenal (BUN/Cr>30, FENa<1%, UrNa: 7) in the setting of hypotension Other: History of NIDDM, HTN, COPD, Hypothyroidism, L humerus fx Her Downstairs Maid is Dr. Baudilio Grace ([place]) * Continue home meds except oral hypoglycemic agents * Accuchecks and Novolog SS Diet: Heart healthy DVT ppx: ALPS due to low hgb Problem List: 1. Hypotension Pain Ratin Tomorrow's Labs & Rationales: CBC, Bundle Plan DVT/Prophylaxis: mechanical
--- NOTE | 2017-07-28 10:26 | PN- Pulmonary ---
Subjective HPI/Critical Care Issues: She is awake alert comfortable with excellent urine output blood pressure remains borderline Jayden-Synephrine was started at low dose and is being tapered Objective Current Medications: Current Medications Sig/Fanny Start time Last Medication Dose Route Stop Time Status Admin Acetaminophen 650 MG Q8P PRN 07/26 2230 AC PO Albuterol Sulfate 3 ML Q4H PRN 07/26 2345 AC INH Aspirin Buffered 81 MG DAILY 07/27 1000 AC PO Ceftriaxone Sodium 1,000 MG 1000 07/27 0630 AC 07/27 IV 0701 Insulin Aspart 0 TIDAC 07/27 0800 AC SC Levothyroxine Sodium 0.05 MG DAILY AC 07/27 0700 AC 07/28 PO 0721 Lidocaine 1 PAT 0800 07/28 0800 AC EXT Lidocaine 1 PAT Q24H 07/26 2230 DC 07/27 EXT 0340 Lorazepam 0.25 MG Q4P PRN 07/27 1415 AC 07/27 IV 1414 Magnesium Sulfate 2 GM .STK-MED ONE 07/27 1808 DC IM 07/27 1809 Magnesium Sulfate 1 GM Q2H 07/27 1745 DC 07/27 Dextrose/Water 100 ML IV 07/27 2144 1925 Melatonin 6 MG AT BEDTIME 07/27 2200 AC 07/27 PO 2210 Metronidazole 500 MG Q8 07/27 0600 AC 07/28 PO 0721 Norepinephrine 4 MG Q24H 07/28 0130 AC Sodium Chloride 250 ML IV Norepinephrine 4 MG Q24H 07/27 2245 DC 07/28 Sodium Chloride 250 ML IV 0040 Omeprazole 40 MG DAILY AC 07/27 0700 AC 07/28 PO 0721 Oxycodone HCl 5 MG Q8P PRN 07/26 2230 AC PO Potassium Chloride 10 MEQ Q1H 07/27 1800 DC 07/27 IV 07/27 1901 1925 Pravastatin Sodium 10 MG 1700 07/27 1700 AC 07/27 PO 1632 Sodium Chloride 1,000 ML Q20H 07/27 1745 AC 07/27 IV 07/28 1344 1750 Sodium Chloride 1,000 ML BOLUS ONE 07/27 1100 DC 07/27 IV 07/27 1159 1000 Tiotropium [place] 1 PUF DAILY 07/27 1130 AC INH Vital Signs & I&O Last 24 Hrs of Vitals and I&O: Vital Signs Date Time Temp Pulse Resp B/P B/P Pulse O2 O2 Flow FiO2 Mean Ox Delivery Rate 07/28 0400 97 Nasal 2.0L Cannula 07/28 0318 95 18 100/51 07/28 0040 106 22 95/39 07/28 0000 97 Nasal 2.0L Cannula 07/28 0000 99.1 112 24 94/50 97 Nasal 2.0L Cannula 07/275 98 Nasal 1.0L Cannula 07/27 2000 98 Nasal 2.0L Cannula 07/27 1600 100 Nasal 2.0L Cannula 07/27 1600 98.2 130 24 102/60 100 Nasal 2.0L Cannula 07/27 1200 99 Nasal 2.0L Cannula Intake & Output 07/28 1600 07/28 0800 07/28 0000 Intake Total 710 1070 Output Total 700 600 Balance 10 470 Intake, Blood 350 Product Intake, IV 575 480 Intake, Oral 135 240 Number 0 0 Bowel Movements Output, Urine 700 600 Patient 160 lb Weight Weight Bed scale Measurement Method Saturation 2 L 99% exam for chest shows decreased breath sounds exam shows regular S1 and S2 abdomen is soft without tenderness renal failure has resolved anemia is improved Impression/Plan Impression/Plan Impression/Plan: 77-year-old presented with profound anemia acute kidney injury hypotension which is improved after transfusion volume resuscitation and Jayden-Synephrine. Etiology at this point is uncertain as cultures remain negative Recommendations: Taper pressors as blood pressure allows Taper FiO2 with saturations 99% assess CVP and adjust fluids accordingly follow up on cultures follow-up GI recommendations
--- NOTE | 2017-07-28 14:42 | PN- Gastroenterology ---
Assessment/Plan Assessment/Recommendations: Anemia, hypotension. No overt GI bleeding (hematemesis, melena, hematochezia). Hematocrit has gone up appropriately with transfusion, and is stable. Recommendations * Check CBC daily * Empiric PPI daily * Decision whether to anticoagulate deferred to Dr. Pelayo * At this point there is no indication for endoscopy. I will follow the patient periodically/as needed. Please call during this hospitalization with questions or need to reevaluate. Subjective Subjective: No overt bleeding (hematemesis, melena, hematochezia). No nausea, vomiting, indigestion, abdominal pain. Objective Vital Signs and I&Os Vital Signs Date Time Temp Pulse Resp B/P B/P Pulse O2 O2 Flow FiO2 Mean Ox Delivery Rate 07/28 1030 98 Nasal 1.5L Cannula 07/28 08 98 Nasal 2.0L Cannula 07/28 0800 98.0 86 22 130/62 98 Nasal 2.0L Cannula 07/28 0400 97 Nasal 2.0L Cannula 07/28 0318 95 18 100/51 07/28 0040 106 22 95/39 07/28 0000 97 Nasal 2.0L Cannula 07/28 0000 99.1 112 24 94/50 97 Nasal 2.0L Cannula 07/27 2055 98 Nasal 1.0L Cannula 07/27 2000 98 Nasal 2.0L Cannula 07/27 1600 100 Nasal 2.0L Cannula 07/27 1600 98.2 130 24 102/60 100 Nasal 2.0L Cannula Intake & Output 07/28 1600 07/28 0400 07/27 1600 07/27 0400 07/26 1600 07/26 0400 Intake Total 710 1070 5998.9 3000 1000 Output Total 894 695 2353 210 Balance 10 470 4728.9 2790 1000 Intake, Blood 350 700 Product Intake, IV 506 408 8647.9 3000 1000 Intake, Oral 135 240 320 Number 0 0 0 Bowel Movements Output, Urine 074 629 6585 210 Patient 160 lb 157 lb 144 lb Weight Weight Bed scale Bed scale Reported by Patient Measurement Method Physical Exam: Abdomen is soft and nondistended, nontender. Current Medications: Current Medications Sig/Fanny Start time Last Medication Dose Route Stop Time Status Admin Acetaminophen 650 MG Q8P PRN 07/26 2230 AC PO Albuterol Sulfate 3 ML Q4H PRN 07/26 2345 AC INH Aspirin Buffered 81 MG DAILY 07/27 1000 AC 07/28 PO 1000 Ceftriaxone Sodium 1,000 MG 1000 07/27 0630 AC 07/28 IV 1000 Insulin Aspart 0 TIDAC 07/27 0800 AC 07/28 SC 1200 Levothyroxine Sodium 0.05 MG DAILY AC 07/27 0700 AC 07/28 PO 0721 Lidocaine 1 PAT 0800 07/28 0800 AC 07/28 EXT 0800 Lidocaine 1 PAT Q24H 07/26 2230 DC 07/27 EXT 0340 Lorazepam 0.25 MG Q4P PRN 07/27 1415 AC 07/27 IV 1414 Magnesium Sulfate 2 GM .STK-MED ONE 07/27 1808 DC IM 07/27 1809 Magnesium Sulfate 1 GM Q2H 07/27 1745 DC 07/27 Dextrose/Water 100 ML IV 07/27 2144 1925 Melatonin 6 MG AT BEDTIME 07/27 2200 AC 07/27 PO 2210 Metronidazole 500 MG Q8 07/27 0600 AC 07/28 PO 1338 Norepinephrine 4 MG Q24H 07/28 0130 AC Sodium Chloride 250 ML IV Norepinephrine 4 MG Q24H 07/27 2245 DC 07/28 Sodium Chloride 250 ML IV 0040 Omeprazole 40 MG DAILY AC 07/27 0700 AC 07/28 PO 0721 Oxycodone HCl 5 MG Q8P PRN 07/26 2230 AC PO Potassium Chloride 10 MEQ Q1H 07/27 1800 DC 07/27 IV 07/27 1901 1925 Pravastatin Sodium 10 MG 1700 07/27 1700 AC 07/27 PO 1632 Sodium Chloride 1,000 ML Q20H 07/27 1745 DC 07/27 IV 07/28 1344 1750 Tiotropium [place] 1 PUF DAILY 07/27 1130 AC 07/28 INH 1000 Results Pertinent Lab Results: Laboratory Tests 07/28 07/27 0400 1643 Chemistry Sodium (137 - 145 mmol/L) 140 Potassium (3.5 - 5.1 mmol/L) 4.1 Chloride (98 - 107 mmol/L) 116 H Carbon Dioxide (22 - 30 mmol/L) 18 L Anion Gap (5 - 16) 6 BUN (7 - 17 mg/dL) 22 H Creatinine (0.5 - 1.0 mg/dL) 0.9 Estimated GFR (>60 ml/min) > 60 Glucose (65 - 99 mg/dL) 137 H Calcium (8.4 - 10.2 mg/dL) 8.0 L Phosphorus (2.5 - 4.5 mg/dL) 2.7 Magnesium (1.6 - 2.3 mg/dL) 1.6 Total Bilirubin (0.2 - 1.3 mg/dL) 0.5 AST (14 - 36 U/L) 14 ALT (9 - 52 U/L) 30 Albumin (3.5 - 5.0 g/dL) 2.0 L Coagulation APTT Cancelled Hematology CBC w Diff NO MAN DIFF REQ WBC (4.8 - 10.8 /CUMM) 12.8 H RBC (4.20 - 5.40 /CUMM) 2.66 L Hgb (12.0 - 16.0 G/DL) 8.0 L Hct (37 - 47 %) 24.0 L MCV (81.0 - 99.0 FL) 90.3 MCH (27.0 - 31.0 PG) 30.0 RDW (11.5 - 14.5 %) 15.6 H Plt Count (130 - 400 /CUMM) 258 MPV (7.4 - 10.4 FL) 8.2 Gran % (42.2 - 75.2 %) 80.9 H Lymphocytes % (20.5 - 51.1 %) 8.7 L Monocytes % (1.7 - 9.3 %) 9.5 H Eosinophils % (0 - 5 %) 0.5 Basophils % (0.0 - 2.0 %) 0.4 Absolute Granulocytes (1.4 - 6.5 /CUMM) 10.4 H Absolute Lymphocytes (1.2 - 3.4 /CUMM) 1.1 L Absolute Monocytes (0.10 - 0.60 /CUMM) 1.2 H Absolute Eosinophils (0.0 - 0.7 /CUMM) 0.1 Absolute Basophils (0.0 - 0.2 /CUMM) 0.1 PUBS MCHC (33.0 - 37.0 G/DL) 33.2 07/27 07/27 07/27 1639 1300 0600 Chemistry Sodium (137 - 145 mmol/L) 142 Potassium (3.5 - 5.1 mmol/L) 3.9 Chloride (98 - 107 mmol/L) 117 H Carbon Dioxide (22 - 30 mmol/L) 17 L Anion Gap (5 - 16) 8 BUN (7 - 17 mg/dL) 29 H Creatinine (0.5 - 1.0 mg/dL) 1.0 Estimated GFR (>60 ml/min) 53 L Glucose (65 - 99 mg/dL) 115 H Calcium (8.4 - 10.2 mg/dL) 7.6 L Phosphorus (2.5 - 4.5 mg/dL) 3.0 Magnesium (1.6 - 2.3 mg/dL) 1.1 L Iron (37 - 170 ug/dL) 152 TIBC (265 - 497 ug/dL) 234 L Ferritin (11.1 - 264 ng/mL) 108.0 Total Bilirubin (0.2 - 1.3 mg/dL) 0.7 AST (14 - 36 U/L) 16 ALT (9 - 52 U/L) 27 Albumin (3.5 - 5.0 g/dL) 2.0 L [place] Cancelled Aldosterone Cancelled ACTH Stimulation Cancelled Coagulation APTT (25 - 37 SEC) 27 Hematology CBC w Diff NO MAN DIFF REQ Cancelled WBC (4.8 - 10.8 /CUMM) 12.5 H Cancelled RBC (4.20 - 5.40 /CUMM) 2.48 L Cancelled Hgb (12.0 - 16.0 G/DL) 7.5 L Cancelled Hct (37 - 47 %) 22.4 L Cancelled MCV (81.0 - 99.0 FL) 90.3 Cancelled MCH (27.0 - 31.0 PG) 30.2 Cancelled RDW (11.5 - 14.5 %) 16.0 H Cancelled Plt Count (130 - 400 /CUMM) 257 Cancelled MPV (7.4 - 10.4 FL) 8.8 Cancelled Gran % (42.2 - 75.2 %) 86.0 H Lymphocytes % (20.5 - 51.1 %) 6.3 L Monocytes % (1.7 - 9.3 %) 7.4 Eosinophils % (0 - 5 %) 0.1 Basophils % (0.0 - 2.0 %) 0.2 Absolute Granulocytes (1.4 - 6.5 /CUMM) 10.7 H Absolute Lymphocytes (1.2 - 3.4 /CUMM) 0.8 L Absolute Monocytes (0.10 - 0.60 /CUMM) 0.9 H Absolute Eosinophils (0.0 - 0.7 /CUMM) 0 Absolute Basophils (0.0 - 0.2 /CUMM) 0 PUBS MCHC (33.0 - 37.0 G/DL) 33.4 Cancelled 07/27 07/27 0550 0430 Chemistry Sodium Cancelled Potassium Cancelled Chloride Cancelled Carbon Dioxide Cancelled Anion Gap Cancelled BUN Cancelled Creatinine Cancelled Glucose Cancelled Calcium Cancelled Phosphorus Cancelled Magnesium Cancelled Total Bilirubin Cancelled AST Cancelled ALT Cancelled Albumin Cancelled Hematology CBC w Diff MAN DIFF ORDERED Cancelled WBC (4.8 - 10.8 /CUMM) 12.1 H Cancelled RBC (4.20 - 5.40 /CUMM) 1.74 L Cancelled Hgb (12.0 - 16.0 G/DL) 5.4 *L Cancelled Hct (37 - 47 %) 16.4 *L Cancelled MCV (81.0 - 99.0 FL) 94.3 Cancelled MCH (27.0 - 31.0 PG) 30.9 Cancelled RDW (11.5 - 14.5 %) 14.5 Cancelled Plt Count (130 - 400 /CUMM) 283 Cancelled MPV (7.4 - 10.4 FL) 9.3 Cancelled Gran % (42.2 - 75.2 %) 81.3 H Lymphocytes % (20.5 - 51.1 %) 8.6 L Monocytes % (1.7 - 9.3 %) 9.6 H Eosinophils % (0 - 5 %) 0.2 Basophils % (0.0 - 2.0 %) 0.3 Absolute Granulocytes (1.4 - 6.5 /CUMM) 9.9 H Absolute Lymphocytes (1.2 - 3.4 /CUMM) 1.0 L Absolute Monocytes (0.10 - 0.60 /CUMM) 1.2 H Absolute Eosinophils (0.0 - 0.7 /CUMM) 0 Absolute Basophils (0.0 - 0.2 /CUMM) 0 Platelet Estimate (ADEQUATE) VERIFIED BY SMEAR Polychromasia Poikilocytosis FEW Basophilic Stippling RARE Anisocytosis 1+ Ovalocytes FEW PUBS MCHC (33.0 - 37.0 G/DL) 32.7 L Cancelled 07/27 07/27 07/27 0400 0220 0152 Chemistry Sodium (137 - 145 mmol/L) 136 L Potassium (3.5 - 5.1 mmol/L) 4.5 Chloride (98 - 107 mmol/L) 111 H Carbon Dioxide (22 - 30 mmol/L) 18 L Anion Gap (5 - 16) 7 BUN (7 - 17 mg/dL) 42 H Creatinine (0.5 - 1.0 mg/dL) 1.4 H Estimated GFR (>60 ml/min) 36 L BUN/Creatinine Ratio (7 - 25 %) 30.0 H Lactate Dehydrogenase (313 - 618 U/L) 291 L Troponin I (< 0.11 ng/ml) < 0.01 Coagulation PT (9.4 - 12.5 SEC) 12.7 H INR (0.90 - 1.19) 1.21 H APTT (25 - 37 SEC) 22 L Hematology CBC w Diff NO MAN DIFF REQ WBC (4.8 - 10.8 /CUMM) 12.8 H RBC (4.20 - 5.40 /CUMM) 1.83 L Hgb (12.0 - 16.0 G/DL) 5.8 *L Hct (37 - 47 %) 17.0 *L MCV (81.0 - 99.0 FL) 93.4 MCH (27.0 - 31.0 PG) 31.5 H RDW (11.5 - 14.5 %) 14.5 Plt Count (130 - 400 /CUMM) 307 MPV (7.4 - 10.4 FL) 9.2 Gran % (42.2 - 75.2 %) 81.3 H Lymphocytes % (20.5 - 51.1 %) 8.7 L Monocytes % (1.7 - 9.3 %) 9.2 Eosinophils % (0 - 5 %) 0.3 Basophils % (0.0 - 2.0 %) 0.5 Absolute Granulocytes (1.4 - 6.5 /CUMM) 10.4 H Absolute Lymphocytes (1.2 - 3.4 /CUMM) 1.1 L Absolute Monocytes (0.10 - 0.60 /CUMM) 1.2 H Absolute Eosinophils (0.0 - 0.7 /CUMM) 0 Absolute Basophils (0.0 - 0.2 /CUMM) 0.1 PUBS MCHC (33.0 - 37.0 G/DL) 33.8 Haptoglobin Pending 07/26 07/26 07/26 2309 2226 2117 Chemistry Lactic Acid (0.7 - 2.1 mmol/L) Cancelled 1.0 Magnesium Cancelled Hematology CBC w Diff Cancelled WBC Cancelled RBC Cancelled Hgb Cancelled Hct Cancelled MCV Cancelled MCH Cancelled RDW Cancelled Plt Count Cancelled MPV Cancelled PUBS MCHC Cancelled 07/26 07/26 1622 1622 Toxicology Urine Opiates Screen (>2000 NG/ML) 281.00 Methadone Screen (>300 NG/ML) < 40 Barbiturate Screen (>200 NG/ML) < 60 Ur Phencyclidine Scrn (>25 NG/ML) < 6.00 Amphetamines Screen (>1000 NG/ML) < 100 U Benzodiazepines Scrn (>200 NG/ML) < 85 Urine Cocaine Screen (>300 NG/ML) < 50 Urine Cannabis Screen (>50 NG/ML) < 5.00 Urines Urine Color (YEL,AMB,STR) YEL Urine Clarity (CLEAR) HAZY H Urine pH (5.0 - 8.0) 5.0 Ur Specific [place] (1.001 - 1.035) 1.025 Urine Protein (NEG,<30 MG/DL) TRACE H Urine Ketones (NEG) TRACE H Urine Nitrite (NEG) NEG Urine Bilirubin (NEG) NEG@ICTO Urine Urobilinogen (0.1 - 1.0 EU/dl) 1.0 Ur Leukocyte Esterase (NEG) SMALL H Ur Microscopic SEDIMENT EXAMINED Urine RBC (0 - 5 /HPF) 1-3 Urine WBC (0 - 2 /HPF) 3-5 H Ur Epithelial Cells (NONE,FEW) MANY H Urine Hemoglobin (NEG) TRACE-INTACT Ur Random Creatinine (mg/dL) 182.7 Ur Random Sodium (30 - 90 mmol/L) 7 L Ur Random Potassium (mmol/L) 45.5 Fraction Sodium Excret (<1% %) 0.1 Urine Glucose (N MG/DL) NEG 07/26 1130 Chemistry Sodium (137 - 145 mmol/L) 133 L Potassium (3.5 - 5.1 mmol/L) 5.2 H Chloride (98 - 107 mmol/L) 100 Carbon Dioxide (22 - 30 mmol/L) 21 L Anion Gap (5 - 16) 12 BUN (7 - 17 mg/dL) 50 H Creatinine (0.5 - 1.0 mg/dL) 2.1 H Estimated GFR (>60 ml/min) 23 L BUN/Creatinine Ratio (7 - 25 %) 23.8 Glucose (65 - 99 mg/dL) 114 H Lactic Acid (0.7 - 2.1 mmol/L) 1.9 Calcium (8.4 - 10.2 mg/dL) 8.8 Magnesium (1.6 - 2.3 mg/dL) 1.0 L Total Bilirubin (0.2 - 1.3 mg/dL) 0.6 AST (14 - 36 U/L) 18 ALT (9 - 52 U/L) 33 Alkaline Phosphatase (<127 U/L) 60 Troponin I (< 0.11 ng/ml) 0.01 Total Protein (6.3 - 8.2 g/dL) 5.2 L Albumin (3.5 - 5.0 g/dL) 3.1 L Globulin (1.9 - 4.2 gm/dL) 2.1 Albumin/Globulin Ratio (1.1 - 2.2 %) 1.5 TSH (0.270 - 4.200 uIU/mL) 6.780 H Cortisol AM Sample (4.46 - 22.7 ug/dL) 41.4 H Hematology CBC w Diff MAN DIFF ORDERED WBC (4.8 - 10.8 /CUMM) 20.3 H RBC (4.20 - 5.40 /CUMM) 2.79 L Hgb (12.0 - 16.0 G/DL) 8.6 L Hct (37 - 47 %) 26.1 L MCV (81.0 - 99.0 FL) 93.6 MCH (27.0 - 31.0 PG) 30.8 RDW (11.5 - 14.5 %) 14.4 Plt Count (130 - 400 /CUMM) 378 MPV (7.4 - 10.4 FL) 9.3 Gran % (42.2 - 75.2 %) 90.1 H Lymphocytes % (20.5 - 51.1 %) 2.9 L Monocytes % (1.7 - 9.3 %) 6.6 Eosinophils % (0 - 5 %) 0 Basophils % (0.0 - 2.0 %) 0.4 Absolute Granulocytes (1.4 - 6.5 /CUMM) 18.3 H Absolute Lymphocytes (1.2 - 3.4 /CUMM) 0.6 L Absolute Monocytes (0.10 - 0.60 /CUMM) 1.3 H Absolute Eosinophils (0.0 - 0.7 /CUMM) 0 Absolute Basophils (0.0 - 0.2 /CUMM) 0.1 Platelet Estimate (ADEQUATE) ADEQUATE Hypochromic-Microcytic 1+ Anisocytosis 1+ PUBS MCHC (33.0 - 37.0 G/DL) 32.9 L
[2017-07-28 16:00] VITALS: BP 120/70
[2017-07-29] VITALS: BP 100/46
[2017-07-29 05:20] LABS: ABSOLUTE BASOPHIL COUNT 0 /CUMM (0.0-0.2); ABSOLUTE EOSINOPHIL COUNT 0.2 /CUMM (0.0-0.7); ABSOLUTE LYMPH COUNT 1.4 /CUMM (1.2-3.4); ABSOLUTE MONOCYTE COUNT 0.9 /CUMM (0.10-0.60); PLATELET COUNT 270 /CUMM (130-400)
[2017-07-29 05:30] LABS: BASOPHIL % 0.3 % (0.0-2.0); EOSINOPHIL % 1.6 % (0-5); GRANULOCYTE % 77.9 % (42.2-75.2); HEMATOCRIT 22.1 % (37-47); MEAN CORPUSCULAR HGB 30.2 PG (27.0-31.0); MEAN CORPUSCULAR HGB CONC 33.4 G/DL (33.0-37.0); MEAN CORPUSCULAR VOLUME 90.3 FL (81.0-99.0); MEAN PLATELET VOLUME 8.3 FL (7.4-10.4); RBC DISTRIBUTION WIDTH 15.8 % (11.5-14.5); RED BLOOD CELL CT 2.45 /CUMM (4.20-5.40); WHITE BLOOD CELL COUNT 11.6 /CUMM (4.8-10.8)
--- NOTE | 2017-07-29 07:36 | PN- Resident CRCU ---
Thomas Neumann 07/29/17 0735: Subjective HPI/CRCU Issues: Hypotension - stable ADRIANA - resolved Anemia 24 Hour Events: Patient received 1U prbcs because her hgb dropped to 7.4. Her SBP maintained ~ 110, currently on levophed. Patient reluctant to get CT abd to investigate ? blood loss but will consider it. Daughter Vaishali ([phone]) made aware of current state. Patient is currently stable. Objective Vital Signs & I&O Last 8 Hrs of Vitals and I&O: Intake & Output 07/29 1600 Intake Total Output Total Balance Patient 160 lb Weight Exam General Appearance: well developed/nourished, no apparent distress, alert, awake , comfortable Head: atraumatic, normal appearance Ears, Nose, Throat: normal pharynx, normal ENT inspection, hearing grossly normal Neck: normal inspection, supple, full range of motion Respiratory: normal breath sounds, chest non-tender, lungs clear Cardiovascular: regular rate/rhythm Gastrointestinal: normal bowel sounds, soft, non-tender Extremities: L arm swelling Current Medications: Current Medications Sig/Fanny Start time Last Medication Dose Route Stop Time Status Admin Acetaminophen 650 MG .STK-MED ONE 07/28 2206 DC PO 07/28 220 Acetaminophen 650 MG Q8P PRN 07/26 2230 AC 07/28 PO 2206 Albuterol Sulfate 3 ML Q4H PRN 07/26 2345 AC INH Aspirin Buffered 81 MG DAILY 07/27 1000 AC 07/29 PO 0820 Ceftriaxone Sodium 1,000 MG 1000 07/27 0630 AC 07/29 IV 0820 Insulin Aspart 0 TIDAC 07/27 0800 AC 07/29 SC 0820 Levothyroxine Sodium 0.05 MG DAILY AC 07/27 0700 AC 07/29 PO 0613 Lidocaine 1 PAT 0800 07/28 0800 AC 07/29 EXT 1043 Lorazepam 0.25 MG Q4P PRN 07/27 1415 AC 07/27 IV 1414 Magnesium Sulfate 1 GM Q2H 07/29 0615 DC 07/29 Dextrose/Water 100 ML IV 07/29 1014 0820 Melatonin 6 MG AT BEDTIME 07/27 2200 AC 07/28 PO 2204 Metronidazole 500 MG Q8 07/27 0600 AC 07/29 PO 0613 Norepinephrine 4 MG Q24H 07/28 0130 AC 07/29 Sodium Chloride 250 ML IV 0227 Omeprazole 40 MG DAILY AC 07/27 0700 AC 07/29 PO 0613 Oxycodone HCl 5 MG Q8P PRN 07/26 2230 AC PO Pravastatin Sodium 10 MG 1700 07/27 1700 AC 07/28 PO 1649 Sodium Chloride 1,000 ML Q20H 07/27 1745 DC 07/27 IV 07/28 1344 1750 Tiotropium [place] 1 PUF DAILY 07/27 1130 AC 07/29 INH 0930 US Findings: 07/29/17 US-UNILATERAL VENOUS DOPPLER IMPRESSION: 1. No thrombus identified within the veins of the left upper extremity. 2. Nonspecific 1.5 cm avascular, hypoechoic structure within the soft tissues in the distal left supraclavicular region. This may represent a lymph node, however, atrophic and fatty hilum is identified. Additionally this may represent a region of hematoma, given recent fall. Ultimately, clinical correlation recommended. Further evaluation may be obtained with cross-sectional imaging if deemed clinically appropriate. Otherwise, follow-up ultrasound imaging is recommended to ensure resolution. Impression/Plan Impression/Problem List Impression: Ms. Saenz is a 77 yo f with a PMH significant for PE currently on Lovenox and a L humerus fracture after a mechanical fall without any active bleeding, admitted to ICU for close monitoring of hypotension. Respiratory: Chronic PE Patient has a history of VTE and she was initially treated with Coumadin but it was changed to Lovenox but it is unclear why. Her records have been requested from [place] to see if patient had a recent PE while being treated at [facility] for her L humerus fracture. If she in fact did have a recurrent PE while on anticoagulation, an IVC filter should be considered. A BLE doppler was done that was neagative for DVT. * Hold Heparin due to severe anemia * Awaiting [facility] records for July 2017 hospitalization * Monitor H&H, goal hgb 7 * Vascular recommendations appreciated * TRC/nebs, oxygen supplementation PRN ID: Leukocytosis without bandemia Her white count is currently stable and she remains afebrile. Her blood cultures remained negative * Monitor white count * Continue Ceftriaxone CVS: Hypotension and tachycardia most likely 2/2 dehydration On admission she was given aggressive fluid management with little improvement. She was initially reluctant have a central line though she was made aware of her BP dropping to 60s/doppler at the time. Patient later agreed to central line placement after discussion with family at bedside * Monitor vitals * Titrate Levophed, goal MAP > 65 * Hold home antihypertensives * ECHO to r/o SHD or valvular abnormalities Hematology: Normocytic Anemia She was transfused 3U prbcs. CT abd showed Colonic diverticulosis without diverticulitis. She has not had any hematemesis or bloody stools so it it unclear if it's 2/2 acute blood loss. She was on Heparin which most likely contributed to her drop in H&H. * Monitor H&H, goal hgb 7, transfuse if necessary * GI recommendations appreciated Metabolic: Hypomagnesemia * Monitor and replete PRN Nephrology: ADRIAAN most likely 2/2 hypovolemia - resolved Patient clinical picture appears to be prerenal (BUN/Cr>30, FENa<1%, UrNa: 7) in the setting of hypotension Other: History of NIDDM, HTN, COPD, Hypothyroidism, L humerus fx Her Dramatic Arts Historian is Dr. Baudilio Grace ([place]) * Continue home meds except oral hypoglycemic agents * Accuchecks and Novolog SS L humerus fracture Patient requested sling be taken off due to discomfort. Her arm is currently swollen and concern for DVT needs to be r/o * UL ultrasound to r/o DVT Diet: Heart healthy DVT ppx: SQ Heparin Problem List: 1. Proximal humerus fracture 2. Hypotension Pain Ratin Tomorrow's Labs & Rationales: CBC, Bundle Plan DVT/Prophylaxis: mechanical, pharmacological Fidencio Pelayo MD 07/29/17 0918: Attending MD Review Statement Attending Sign Off Attending Cosign Statement: I have: examined this patient, reviewed [employer] EMR data, personally reviewd images, discussd w/resident/PA/PRODUCT MARKETING DIRECTOR, discussed mgmt plan w/mary, discussed mgmt plan w/CM, discussed mgmt plan w/pt, agreed w/resident/PA/PRODUCT MARKETING DIRECTOR, amended to note. Other Findings: Impression 77 year old woman * Diarrhea few days ago, poor po intake, brought to the ICU secondary to hypotension that is secondary to presumed hypovolemia supported by ADRIANA which is likely prerenal, not on pressors hence not in shock at this time * She has a new finding of severe anemia - unclear if blood loss * [facility]'s admit 1 wk ago (humerus fracture) - ?PE at that time - on Lovenox * Chronic PE since 2013 on coumadin (but recently on lovenox) * COPD on home oxygen * chronic atelectasis * mild leukocytosis is improved, possible colitis could have been gastroenteritis Plan - 7 Liters of fluids have been given, BP goal >65 MAP - has been reluctant overnight to receive central access, BP is currently borderline but stable, would rehabilitation counsellor patient on receiving central access in anticipation of a central access - empiric abx for now - flagyl and ceftriaxone - c.diff, stool cx etc have been sent - will follow - incentive spirometry (recent humerus fracture) - sling - no evidence of any bleeding at the fracture site - hold heparin, check LE dopplers, get records from [facility], given chronic PE will need to evaluate need for an IVC filter - please call vascular surgery now - ECHO - creatinine significantly improved - no evidence of obstruction on CT, will hold of renal consultation for now and continue to hydrate ALPS for DVT prophylaxis at all times TTS 40 min
[2017-07-29 08:00] VITALS: BP 104/60
[2017-07-29 12:00] VITALS: BP 106/58
--- NOTE | 2017-07-29 12:07 | ULTRASOUND REPORT ---
EXAMINATION: DUPLEX VENOUS ULTRASOUND OF THE left UPPER EXTREMITY. CLINICAL HISTORY: Left arm fracture following fall. Swelling. COMPARISON: Shoulder radiographs 06/28/2017 and left upper extremity DVT study 07/26/2017 TECHNIQUE: Grayscale, color and Doppler ultrasound of the deep veins of the left upper extremity were performed. FINDINGS: The left internal jugular, subclavian and axillary veins demonstrate normal color Doppler flow suggesting patency. The left brachial and basilic veins are easily compressible and demonstrate normal color Doppler flow suggesting patency. The left cephalic vein is easily compressible suggesting patency. Within the distal left supraclavicular region is a fairly well-defined 1.5 x 0.8 x 1.3 cm hypoechoic structure which is avascular in nature. IMPRESSION: 1. No thrombus identified within the veins of the left upper extremity. 2. Nonspecific 1.5 cm avascular, hypoechoic structure within the soft tissues in the distal left supraclavicular region. This may represent a lymph node, however, atrophic and fatty hilum is identified. Additionally this may represent a region of hematoma, given recent fall. Ultimately, clinical correlation recommended. Further evaluation may be obtained with cross-sectional imaging if deemed clinically appropriate. Otherwise, follow-up ultrasound imaging is recommended to ensure resolution.
[2017-07-29 16:00] VITALS: BP 102/50
--- NOTE | 2017-07-29 19:12 | ECHOCARDIOGRAM REPORT ---
MARY DE LEON Age: 77 : 1940 Gender: F Exam Date: 07/29/2017 16:24 Exam Location: [facility] Ht (in): 59 Wt (lb): 159 BSA: 1.76 BP: 106 / 58 Ordering Physician: Thomas Neumann MD Referring Physician: Thomas Neumann MD Technologist: Yasmeen Bardales ISAEL Room Number: 108 Indications: ACUTE PULMONARY EMBOLISM Rhythm: Sinus Technical Quality: Fair, Technically difficult study FINDINGS Left Ventricle Normal size left ventricle. Hypokinetic septum. Normal left ventricular ejection fraction estimated at 55-60%. Right Ventricle Right ventricle at upper limits of normal. Right Atrium Right atrial dilatation. Left Atrium Mild left atrial dilatation. Mitral Valve Mitral valve thickened. Mild mitral regurgitation. Aortic Valve Trileaflet aortic valve. Diffuse thickening (sclerosis) of the aortic valve cusps without reduced excursion. No aortic stenosis. Trace aortic regurgitation. Tricuspid Valve Tricuspid valve not well visualized, grossly normal. Mild tricuspid regurgitation. Right ventricular systolic pressure estimated at 42 mmHg. Pulmonic Valve Pulmonic valve not well visualized, grossly normal. Pericardium No pericardial effusion. Great Vessels Normal size aortic root and proximal ascending aorta. CONCLUSIONS 1. This was a technically difficult and limited study due to the patient's body habitus. 2. Aortic sclerosis is present with minimal aortic insufficiency. 3. Moderate thickening of the mitral leaflets is present with mild to moderate annular calcification and mild mitral insufficiency with mild left atrial enlargement. 4. There is no significant pericardial fluid detected on the study. 5. The left ventricular chamber size is normal. The ejection fraction is 55-60%. There is abnormal septal motion with mild hypokinesia of the mid to distal septum present. 6. The right heart chambers are upper normal in size. Mild tricuspid and pulmonic insufficiency are present. The estimated right ventricular systolic pressure is at least 42 mmHg. 7. The patient was tachycardic during the test. A follow-up examination is suggestive of the patient's heart rate is slower to better assess ventricular wall motion and the right ventricular systolic pressure. Sherrie Montoya M.D. (Electronically Signed) Final Date: 29 July 2017 19:12 MEASUREMENTS (Male / Female) Normal Values 2D ECHO LV Diastolic Diameter PLAX 4.0 cm 4.2 - 5.9 / 3.9 - 5.3 cm LV Systolic Diameter PLAX 2.7 cm 2.1 - 4.0 cm LV Fractional Shortening PLAX 32.5 % 25 - 46 % LV Ejection Fraction 2D Teich 61.4 % IVS Diastolic Thickness 0.8 cm LVPW Diastolic Thickness 0.9 cm LV Relative Wall Thickness 0.4 RV Internal Dim ED PLAX 3.6 cm 1.9 - 3.8 cm LVOT Diameter 2.1 cm Aortic Root Diameter 3.5 cm LA Systolic Diameter LX 4.4 cm 3.0 - 4.0 / 2.7 - 3.8 cm LA Volume 38.0 cm 18 - 58 / 22 - 52 cm Ascending Aorta Diameter 3.2 cm DOPPLER AV Peak Velocity 139.0 cm/s AV Peak Gradient 7.7 mmHg AV Mean Velocity 103.0 cm/s AV Mean Gradient 5.0 mmHg AV Velocity Time Integral 29.2 cm LVOT Peak Velocity 114.0 cm/s LVOT Peak Gradient 5.2 mmHg LVOT Mean Velocity 81.1 cm/s LVOT Mean Gradient 3.0 mmHg LVOT Velocity Time Integral 25.7 cm LVOT Stroke Volume 89.0 cm AV Area Cont Eq vti 3.0 cm AV Area Cont Eq pk 2.8 cm MV Peak Velocity 156.0 cm/s MV Peak Gradient 9.7 mmHg MV Mean Velocity 94.0 cm/s MV Mean Gradient 4.0 mmHg Mitral E Point Velocity 134.0 cm/s MV PHT Velocity 162.0 cm/s MV Deceleration Clare 1259.0 cm/s MV Pressure Half Time 38.6 ms MV Area PHT 5.7 cm MV Deceleration Time 201.0 ms TR Peak Velocity 301.0 cm/s TR Peak Gradient 36.2 mmHg Right Atrial Pressure 5.0 mmHg Pulmonary Artery Systolic Pressu 41.2 mmHg Right Ventricular Systolic Press 41.2 mmHg PV Peak Velocity 128.0 cm/s PV Peak Gradient 6.6 mmHg PV Mean Velocity 64.2 cm/s PV Mean Gradient 2.0 mmHg PV Velocity Time Integral 22.4 cm LV E' Lateral Velocity 5.8 cm/s Mitral E to LV E' Lateral Ratio 23.3 LV E' Septal Velocity 24.3 cm/s Mitral E to LV E' Septal Ratio 5.5
[2017-07-30] VITALS: BP 110/50
[2017-07-30 04:36] LABS: ABSOLUTE BASOPHIL COUNT 0.1 /CUMM (0.0-0.2); ABSOLUTE EOSINOPHIL COUNT 0.3 /CUMM (0.0-0.7); ABSOLUTE GRANULOCYTE CT 9.2 /CUMM (1.4-6.5); ABSOLUTE LYMPH COUNT 1.3 /CUMM (1.2-3.4); ABSOLUTE MONOCYTE COUNT 0.9 /CUMM (0.10-0.60); BASOPHIL % 0.4 % (0.0-2.0); EOSINOPHIL % 2.4 % (0-5); GRANULOCYTE % 78.6 % (42.2-75.2); MEAN CORPUSCULAR HGB 30.2 PG (27.0-31.0); MEAN CORPUSCULAR HGB CONC 33.4 G/DL (33.0-37.0); MEAN CORPUSCULAR VOLUME 90.3 FL (81.0-99.0); PLATELET COUNT 299 /CUMM (130-400); RBC DISTRIBUTION WIDTH 15.6 % (11.5-14.5); WHITE BLOOD CELL COUNT 11.7 /CUMM (4.8-10.8)
[2017-07-30 04:42] LABS: HEMATOCRIT 28.5 % (37-47); RED BLOOD CELL CT 3.16 /CUMM (4.20-5.40)
--- NOTE | 2017-07-30 07:38 | PN- Resident CRCU ---
See Addendum Thomas Neumann 07/30/17 0737: Subjective HPI/CRCU Issues: Hypotension - stable ADRIANA - resolved Anemia 24 Hour Events: Spoke with patient PCP-Rachel Morejon-PAC in regards to anticoagulation. She reports that she has not seen patient since discharged from [facility] and last time she saw her she was put on Coumadin for a chronic PE. She did not have hypercoagulability studies done and suggested if we felt patient did not need further anticoagulation we should please order hypercoagulability studies and she'll follow up with patient in regards to if she needs further anticoagulation. Patient has no complaints, no events overnight. Spoke with patient about plan and she is in agreement with holding anticoagulation. She continues to refuse CT abdomen and colonoscopy to further investigate her anemia Objective Vital Signs & I&O Last 8 Hrs of Vitals and I&O: Tmax:98.1 BP:104-110/51-66 O2 sat: 98% on RA I:100 O: 600 Exam General Appearance: well developed/nourished, no apparent distress, alert, awake , comfortable Head: atraumatic, normal appearance Ears, Nose, Throat: normal pharynx, normal ENT inspection, hearing grossly normal Neck: normal inspection, supple, full range of motion Respiratory: normal breath sounds, chest non-tender, no respiratory distress, lungs clear Cardiovascular: regular rate/rhythm Gastrointestinal: normal bowel sounds, soft, non-tender, no organomegaly Extremities: no edema, Difussed ecchymosis Current Medications: Current Medications Sig/Fanny Start time Last Medication Dose Route Stop Time Status Admin Acetaminophen 650 MG .STK-MED ONE 07/29 1615 DC PO 07/29 1616 Acetaminophen 650 MG Q8P PRN 07/26 2230 AC 07/29 PO 1615 Albuterol Sulfate 3 ML Q4H PRN 07/26 2345 AC INH Aspirin Buffered 81 MG DAILY 07/27 1000 AC 07/29 PO 0820 Ceftriaxone Sodium 1,000 MG 1000 07/27 0630 AC 07/29 IV 0820 Heparin Sodium 5,000 UNIT Q8 07/29 1400 AC 07/30 (Porcine) SC 0600 Insulin Aspart 0 TIDAC 07/27 0800 AC 07/29 SC 0820 Levothyroxine Sodium 0.05 MG DAILY AC 07/27 0700 AC 07/30 PO 0600 Lidocaine 1 PAT 0800 07/28 0800 AC 07/29 EXT 1043 Lorazepam 0.25 MG Q4P PRN 07/27 1415 AC 07/27 IV 1414 Magnesium Sulfate 1 GM Q2H 07/29 0615 DC 07/29 Dextrose/Water 100 ML IV 07/29 1014 0820 Melatonin 6 MG AT BEDTIME 07/27 2200 AC 07/29 PO 2121 Metronidazole 500 MG Q8 07/27 0600 AC 07/30 PO 0600 Norepinephrine 4 MG Q24H 07/28 0130 DC 07/29 Sodium Chloride 250 ML IV 0227 Omeprazole 40 MG DAILY AC 07/27 0700 AC 07/30 PO 0600 Oxycodone HCl 5 MG Q8P PRN 07/26 2230 AC PO Pravastatin Sodium 10 MG 1700 07/27 1700 AC 07/29 PO 1615 Tiotropium [place] 1 PUF DAILY 07/27 1130 AC 07/29 INH 0930 ECHO Findings: 07/29/17 CONCLUSIONS 1. This was a technically difficult and limited study due to the patient's body habitus. 2. Aortic sclerosis is present with minimal aortic insufficiency. 3. Moderate thickening of the mitral leaflets is present with mild to moderate annular calcification and mild mitral insufficiency with mild left atrial enlargement. 4. There is no significant pericardial fluid detected on the study. 5. The left ventricular chamber size is normal. The ejection fraction is 55-60%. There is abnormal septal motion with mild hypokinesia of the mid to distal septum present. 6. The right heart chambers are upper normal in size. Mild tricuspid and pulmonic insufficiency are present. The estimated right ventricular systolic pressure is at least 42 mmHg. 7. The patient was tachycardic during the test. A follow-up examination is suggestive of the patient's heart rate is slower to better assess ventricular wall motion and the right ventricular systolic pressure. Impression/Plan Impression/Problem List Impression: Ms. Saenz is a 77 yo f with a PMH significant for PE currently on Lovenox and a L humerus fracture after a mechanical fall without any active bleeding, admitted to ICU for close monitoring of hypotension. Patient is stable for transfer to general medical floor Respiratory: History of PE (2012) Records were obtained from [facility] (in chart) which reports she was admitted 07/03/17-07/07/17 sent in by PCP Racheljesika Vigil ([place]) for low O2 sats and tachycardia to r/o PE. She was on Coumadin 5 mg at the time. She had a CTA and BLE doppler done which was negative for a VTE. Pulmonary vascular congestion, small R pleural effusion and mild cardiomegaly was noted. Her ECG showed a LBBB and negative serial troponins. She was admitted for symptomatic anemia with guaiac positive stools. She had a colonoscopy in 1998 which was unremarkable. She refused a EGD due to age and risk. She also refused an IVC filter. Patient requested to restart Coumadin and GI-Dr. Ochoa ([facility]) told patient risk with restarting anticoagulation with her anemia and ?acute blood loss. They informed patient of an alternative to start Lovenox with close monitoring of H&H and advised patient that if serial outpatient H&H stable, follow up with PCP to restart Coumadin. On discharge she was started on Enoxaparin and her Coumadin was discontinued. Spoke with patient PCP-Rachel Vigil in regards to anticoagulation. She reports that she has not seen patient since discharged (07/07/17) from [facility] ([place]). The last time she saw her she was put on Coumadin for a chronic PE. She did not have hypercoagulability studies done and suggested if we felt patient did not need further anticoagulation we should please order hypercoagulability studies and she'll follow up with patient in regards to if she needs further anticoagulation. We spoke with patient about plan and she is in agreement with stopping anticoagulation. She continues to refuse CT abdmonen and colonoscopy to further investigate her anemia * Hold Heparin due to severe anemia * Monitor H&H, goal hgb 7 * Vascular recommendations appreciated * TRC/nebs, oxygen supplementation PRN * Hypercoag workup to be done as an outpatient 3 weeks after Heparin/Lovenox discontinuation ID: Leukocytosis without bandemia Her white count is currently stable and she remains afebrile. Her blood cultures remained negative * Monitor white count * Continue Ceftriaxone and Flagyl until white count wnl CVS: Hypotension and tachycardia most likely 2/2 dehydration - resolved On admission she was given aggressive fluid management with little improvement. She was initially reluctant have a central line though she was made aware of her BP dropping to 60s/doppler at the time. Patient later agreed to central line placement after discussion with family at bedside. Levophed was discontinued. ECHO LV function nl, EF 55-60%, hypokintetic septum * Monitor vitals * Hold home antihypertensives Hematology: Normocytic Anemia She was transfused 3U prbcs. CT abd showed Colonic diverticulosis without diverticulitis. She has not had any hematemesis or bloody stools so it it unclear if it's 2/2 acute blood loss. She was on Heparin which most likely contributed to her drop in H&H. * Monitor H&H, goal hgb 7, transfuse if necessary * GI recommendations appreciated Metabolic: Hypomagnesemia * Monitor and replete PRN Nephrology: ADRIANA most likely 2/2 hypovolemia - resolved Patient clinical picture appears to be prerenal (BUN/Cr>30, FENa<1%, UrNa: 7) in the setting of hypotension Other: History of NIDDM, HTN, COPD, Hypothyroidism, L humerus fx Her Valet Parker is Dr. Baudilio Grace ([place]) * Continue home meds except oral hypoglycemic agents * Accuchecks and Novolog SS L humerus fracture Patient requested sling be taken off due to discomfort. Her arm is currently swollen and concern for DVT was r/o with a UL ultrasound. Diet: Heart healthy DVT ppx: SQ Heparin Code: Full Problem List: 1. Proximal humerus fracture 2. Hypomagnesemia 3. Hypotension Pain Ratin Tomorrow's Labs & Rationales: CBC, Bundle Plan DVT/Prophylaxis: mechanical, pharmacological Pierce MARES,Fidencio 07/30/17 1040: Attending MD Review Statement Attending Sign Off Attending Cosign Statement: I have: examined this patient, reviewed [employer] EMR data, personally reviewd images, discussd w/resident/PA/DIRECTOR CORPORATE, discussed mgmt plan w/mary, discussed mgmt plan w/CM, discussed mgmt plan w/pt, agreed w/resident/PA/DIRECTOR [employer]PORATE, amended to note. Other Findings: Impression 77 year old woman * improved anemia - unclear if blood loss * resolved renal failure secondary to dehydration * [facility] 2 wks ago (humerus fracture) * Chronic PE since 2012 on coumadin (but recently on lovenox) - one event * COPD on home oxygen * chronic atelectasis * mild leukocytosis is improved, possible colitis could have been gastroenteritis Plan - unclear reason for a/c - given anemia, left arm hematoma (not bleeding), and one VTE event in 2013, no clots in upper or lower extremities and risk of anemia/bleeding, we suggested to the family and patient to consider monitoring the patient off a/c. Obviously her risk of VTE is present without therapy, however there is no specific reason that is evidence based to continue a/c. Based on records and we will d/w family if no other VTE events we will suggest to stop a/c altogether -cont abx for now -DG to GM once hemoglobin continues to be stable and an agreement is made based on a/c - incentive spirometry (recent humerus fracture) - no evidence of any bleeding at the fracture site - patient declines any imaging at this time (CT) - declined consideration for an IVC filter evaluation, however no evidence to necessitate one ALPS for DVT prophylaxis at all times TTS 35 min
[2017-07-30 08:00] VITALS: BP 114/60
[2017-07-30 16:00] VITALS: BP 116/60
[2017-07-31] VITALS: BP 120/50
[2017-07-31 05:57] LABS: ABSOLUTE BASOPHIL COUNT 0.1 /CUMM (0.0-0.2); ABSOLUTE EOSINOPHIL COUNT 0.2 /CUMM (0.0-0.7); ABSOLUTE GRANULOCYTE CT 8.9 /CUMM (1.4-6.5); ABSOLUTE LYMPH COUNT 1.2 /CUMM (1.2-3.4); ABSOLUTE MONOCYTE COUNT 0.9 /CUMM (0.10-0.60); BASOPHIL % 0.6 % (0.0-2.0); HEMATOCRIT 28.6 % (37-47); MEAN CORPUSCULAR HGB 30.1 PG (27.0-31.0); MEAN CORPUSCULAR HGB CONC 33.3 G/DL (33.0-37.0); MEAN CORPUSCULAR VOLUME 90.3 FL (81.0-99.0); MEAN PLATELET VOLUME 8.1 FL (7.4-10.4); PLATELET COUNT 335 /CUMM (130-400); RBC DISTRIBUTION WIDTH 15.9 % (11.5-14.5); RED BLOOD CELL CT 3.17 /CUMM (4.20-5.40); WHITE BLOOD CELL COUNT 11.3 /CUMM (4.8-10.8)
--- NOTE | 2017-07-31 07:30 | PN- Resident CRCU ---
See Addendum Subjective HPI/CRCU Issues: Hypotension - stable ADRIANA - resolved Anemia - stable 24 Hour Events: Patient has no complaints and no events overnight. Her Central line was discontinued yesterday. Patient has required no Levophed for the past 3 days Objective Vital Signs & I&O Last 8 Hrs of Vitals and I&O: Tmax:98 BP:124/66 HR: 94 O2 sat: 96% on RA Exam General Appearance: well developed/nourished, no apparent distress, alert, awake , comfortable Head: atraumatic, normal appearance Ears, Nose, Throat: normal pharynx, normal ENT inspection, hearing grossly normal Neck: normal inspection, supple, full range of motion Respiratory: normal breath sounds, chest non-tender, no respiratory distress, lungs clear Cardiovascular: regular rate/rhythm Gastrointestinal: normal bowel sounds, soft, non-tender, no organomegaly Extremities: normal inspection, normal range of motion, no edema, L sling intact , swelling resolved Current Medications: Current Medications Sig/Fanny Start time Last Medication Dose Route Stop Time Status Admin Acetaminophen 650 MG .STK-MED ONE 07/30 2127 DC PO 07/30 2128 Acetaminophen 650 MG Q8P PRN 07/26 2230 AC 07/30 PO 212 Albuterol Sulfate 3 ML Q4H PRN 07/26 2345 AC INH Aspirin Buffered 81 MG DAILY 07/27 1000 AC 07/31 PO 0919 Ceftriaxone Sodium 1,000 MG 1000 07/27 0630 AC 07/31 IV 0919 Heparin Sodium 5,000 UNIT Q8 07/29 1400 AC 07/31 (Porcine) SC 0713 Insulin Aspart 0 TIDAC 07/27 0800 AC 07/30 SC 1639 Levothyroxine Sodium 0.05 MG DAILY AC 07/27 0700 AC 07/31 PO 0715 Lidocaine 1 PAT 0800 07/28 0800 AC 07/30 EXT 0942 Lorazepam 0.25 MG Q4P PRN 07/27 1415 AC 07/27 IV 1414 Magnesium Oxide 400 MG ONCE ONE 07/31 0645 DC 07/31 PO 07/31 0646 0919 Magnesium Sulfate 1 GM Q2H 07/30 0845 DC 07/30 Dextrose/Water 100 ML IV 07/30 1244 1101 Melatonin 6 MG AT BEDTIME 07/27 2200 AC 07/30 PO 2128 Metronidazole 500 MG Q8 12/24 0600 AC 07/31 PO 0713 Omeprazole 40 MG DAILY AC 07/27 0700 AC 07/31 PO 0714 Oxycodone HCl 5 MG .STK-MED ONE 07/31 0123 DC PO 07/31 0124 Oxycodone HCl 5 MG Q8P PRN 07/26 2230 AC 07/31 PO 0932 Pravastatin Sodium 10 MG 1700 07/27 1700 AC 07/30 PO 1639 Tiotropium [place] 1 PUF DAILY 07/27 1130 AC 07/31 INH 0929 Impression/Plan Impression/Problem List Impression: Ms. Saenz is a 77 yo f with a PMH significant for PE currently on Lovenox and a L humerus fracture after a mechanical fall without any active bleeding, admitted to ICU for close monitoring of hypotension. Patient is stable for transfer to general medical floor Respiratory: History of PE (2012) Records were obtained from [place] (in chart) which reports she was admitted 07/03/17-07/07/17 sent in by PCP Rachel Vigil ([place]) for low O2 sats and tachycardia to r/o PE. She was on Coumadin 5 mg at the time. She had a CTA and BLE doppler done which was negative for a VTE. Pulmonary vascular congestion, small R pleural effusion and mild cardiomegaly was noted. Her ECG showed a LBBB and negative serial troponins. She was admitted for symptomatic anemia with guaiac positive stools. She had a colonoscopy in 1998 which was unremarkable. She refused a EGD due to age and risk. She also refused an IVC filter. Patient requested to restart Coumadin and GI-Dr. Ochoa ([place]) told patient risk with restarting anticoagulation with her anemia and ?acute blood loss. They informed patient of an alternative to start Lovenox with close monitoring of H&H and advised patient that if serial outpatient H&H stable, follow up with PCP to restart Coumadin. On discharge she was started on Enoxaparin and her Coumadin was discontinued. Spoke with patient PCP-Rachel Vigil in regards to anticoagulation. She reports that she has not seen patient since discharged (07/07/17) from [facility]. The last time she saw her she was put on Coumadin for a chronic PE. She did not have hypercoagulability studies done and suggested if we felt patient did not need further anticoagulation we should please order hypercoagulability studies and she'll follow up with patient in regards to if she needs further anticoagulation. We spoke with patient about plan and she is in agreement with stopping anticoagulation. She continues to refuse CT abdmonen and colonoscopy to further investigate her anemia * Hold Heparin due to severe anemia * Monitor H&H, goal hgb 7 * Vascular recommendations appreciated * TRC/nebs, oxygen supplementation PRN * Hypercoag workup to be done as an outpatient 3 weeks after Heparin/Lovenox discontinuation ID: Leukocytosis without bandemia Her white count is currently stable and she remains afebrile. Her blood cultures remained negative * Monitor white count * Continue Ceftriaxone and Flagyl until white count wnl CVS: Hypotension and tachycardia most likely 2/2 dehydration - resolved On admission she was given aggressive fluid management with little improvement. She was initially reluctant have a central line though she was made aware of her BP dropping to 60s/doppler at the time. Patient later agreed to central line placement after discussion with family at bedside. Levophed was discontinued. ECHO LV function nl, EF 55-60%, hypokintetic septum * Monitor vitals * Hold home antihypertensives Hematology: Normocytic Anemia She was transfused 3U prbcs. CT abd showed Colonic diverticulosis without diverticulitis. She has not had any hematemesis or bloody stools so it it unclear if it's 2/2 acute blood loss. She was on Heparin which most likely contributed to her drop in H&H. * Monitor H&H, goal hgb 7, transfuse if necessary * GI recommendations appreciated Metabolic: Hypomagnesemia * Monitor and replete PRN Nephrology: ADRIANA most likely 2/2 hypovolemia - resolved Patient clinical picture appears to be prerenal (BUN/Cr>30, FENa<1%, UrNa: 7) in the setting of hypotension Other: History of NIDDM, HTN, COPD, Hypothyroidism, L humerus fx Her Tattoo Designer is Dr. Baudilio Grace ([place]) * Continue home meds except oral hypoglycemic agents * Accuchecks and Novolog SS L humerus fracture Patient requested sling be taken off due to discomfort. Her arm is currently swollen and concern for DVT was r/o with a UL ultrasound. Diet: Heart healthy DVT ppx: SQ Heparin Code: Full Problem List: 1. Proximal humerus fracture 2. Hypomagnesemia 3. Hypotension Pain Ratin Tomorrow's Labs & Rationales: CBC, Bundle Plan DVT/Prophylaxis: mechanical, pharmacological
[2017-07-31 08:00] VITALS: BP 124/66
--- NOTE | 2017-07-31 12:38 | Discharge Summary ---
Visit Information Visit Dates Admission Date: 07/26/17 Discharge Date: 08/02/17 Hospital Course Course Attending Physician: Fidencio Pelayo MD Primary Care Physician: Sierra MARES,Gustavo Vyas Hospital Course: Ms. Saenz is a 77 yo f with a PMH significant for NIDDM, HTN, COPD on 2L home oxygen, hypothyroidism, chronic bilateral pedal edema, chronic pulmonary embolism was on Coumadin changed to Lovenox, L humerus fracture after a mechanical fall, complaints of left arm pain and dehydration admitted to general medicine floor. She subsequently transferred to ICU for close monitoring for severe hypotension and anemia. Active issues: Hypotension and tachycardia - resolved On admission she was given aggressive fluid management with little improvement. She was admitted to the ICU for further management. In the ICU, her BP dropped to 60s/doppler. A central line was placed and Levophed was titrated with a goal MAP > 65. We held her antihypertensives during her stay. ECHO showed normal LV function, EF 55-60% and a hypokintetic septum Normocytic Anemia - stable, History of PE (2012) Her H&H was 5.8/17. She was transfused 4U of packed red blood cells. CT abd showed Colonic diverticulosis without diverticulitis. GI was consulted and recommendations were followed. Patient refused a colonoscopy and EGD so the source of bleeding is unknown. She was being treated as an outpatient with Lovenox for PE that we changed to Heparin during her stay. As her H&H continued to drop, we discontinued her Heparin. We monitored her H&H, goal hgb 8, transfuse as needed. Patient was advised to hold Lovenox and have a thrombophilia panel done as an outpatient 3 weeks after Heparin/Lovenox discontinuation to determine whether she should be continued on anticoagulation. The plan was discussed with her [id number]-JNe. Leukocytosis without bandemia Patient was given Ceftriaxone and Flagyl. She was afebrile throughout her stay. Her blood cultures remained negative and we continued to monitor her white count Hypomagnesemia We monitored and repleted her magnesium as needed ADRIANA most likely 2/2 hypovolemia - resolved Patient clinical picture appeared to be prerenal (BUN/Cr>30, FENa<1%, UrNa: 7) in the setting of hypotension that resolved with fluid resuscitation L humeral fracture - POA Patient had a mechanical fall on 06/28/2017 and was admitted in [facility] for 4 days on and was managed conservatively and was sent to [facility]. During this admission she requested sling be taken off intermittently due to discomfort. She had arm swelling that spontaneously resolved and concern for DVT was ruled out with a L extremity doppler ultrasound. History of NIDDM We performed accuchecks and administered Novolog SS Hypothyroidism Patient was on 0.05 mg of levothyroxine on admission. TFTs revealed elevated TSH (6.780). Her dose was increased to 0.075, she should have repeat TFTs in 6 weeks as an outpatient. Diet: Heart healthy DVT ppx: SQ Heparin Allergies: Coded Allergies: NO KNOWN ALLERGIES (09/22/14) Pertinent Lab Results: 07/29/17 US-UNILATERAL VENOUS DOPPLER IMPRESSION: 1. No thrombus identified within the veins of the left upper extremity. 2. Nonspecific 1.5 cm avascular, hypoechoic structure within the soft tissues in the distal left supraclavicular region. This may represent a lymph node, however, atrophic and fatty hilum is identified. Additionally this may represent a region of hematoma, given recent fall. Ultimately, clinical correlation recommended. Further evaluation may be obtained with cross-sectional imaging if deemed clinically appropriate. Otherwise, follow-up ultrasound imaging is recommended to ensure resolution. 07/29/17 ECHOCARDIOGRAM CONCLUSIONS 1. This was a technically difficult and limited study due to the patient's body habitus. 2. Aortic sclerosis is present with minimal aortic insufficiency. 3. Moderate thickening of the mitral leaflets is present with mild to moderate annular calcification and mild mitral insufficiency with mild left atrial enlargement. 4. There is no significant pericardial fluid detected on the study. 5. The left ventricular chamber size is normal. The ejection fraction is 55-60%. There is abnormal septal motion with mild hypokinesia of the mid to distal septum present. 6. The right heart chambers are upper normal in size. Mild tricuspid and pulmonic insufficiency are present. The estimated right ventricular systolic pressure is at least 42 mmHg. 7. The patient was tachycardic during the test. A follow-up examination is suggestive of the patient's heart rate is slower to better assess ventricular wall motion and the right ventricular systolic pressure. FINDINGS: Respiratory variation, normal compression and color flow are noted throughout the lower extremities. The visualized common femoral vein, femoral vein, profunda femoral vein, popliteal vein show no evidence of deep venous thrombosis. The calf veins were not well visualized. There is no Moran's cyst. 07/27/17 US-EXT BILAT VENOUS DOPPLER IMPRESSION: No evidence of deep venous thrombosis within either lower extremity. 07/26/17-1323 CT ABD & PELVIS W/O IV CONTRAS IMPRESSION: 1. No evidence of nephrolithiasis or urinary tract obstruction. 2. Status post cholecystectomy with chronically dilated common bile duct; no evidence of choledocholithiasis 3. Colonic diverticulosis without diverticulitis. 4. Severe rotatory dextroscoliosis of the thoracic spine and levoscoliosis of the lumbar spine. 5. Chronic atelectasis within the lower lobes. Disposition Summary Disposition Principal Diagnosis: Acute blood loss Additional Diagnosis: Severe hypotension Hypomagnesemia Discharge Disposition: SNF Discharge Instructions General Discharge Information Code Status: Full Code Patient's Diet: Heart healthy Patient's Activity: As tolerated Follow-Up Instructions/Appts: Follow the general primary care physician in one week. Follow-up with deck mate in 1 week. Medications at Discharge Discharge Medications: Stop taking the following medications: Levothyroxine Sodium (Levothyroxine Sodium) 25 MCG TABLET ORAL DAILY BEFORE BREAKFAST Aspirin (Ecotrin*) 81 MG TABLET. ORAL DAILY Enoxaparin Sodium (Lovenox) 120 MG/0.8 ML SYRINGE Inject into fatty tissue DAILY Continue taking these medications: Lisinopril (Lisinopril) 40 MG TABLET 1 Tablet ORAL DAILY Comments: NOT GIVEN IN THE HOSPITAL. Sitagliptin Phosphate (Januvia) 50 MG TABLET 0.5 Tablet ORAL DAILY Comments: NOT GIVEN IN THE HOSPITAL Sucralfate (Carafate) 1 GRAM TABLET 1 Tablet ORAL 4 TIMES A DAY Comments: NOT GIVEN Pravastatin Sodium (Pravastatin Sodium) 10 MG TABLET 1 Tablet ORAL DAILY Comments: Last Taken: 08/01/17 Time: 530PM Pantoprazole Sodium (Pantoprazole Sodium) 40 MG TABLET. 1 Tablet ORAL DAILY Comments: PRILOSEC GIVEN IN SUBSTITUTION Last Taken: 08/02/17 Time: 500AM Melatonin (Melatonin) 3 MG TABLET 2 Tablet ORAL TAKE AT BEDTIME Comments: Last Taken: 08/01/17 Time: 930PM Oxycodone HCl (Oxycodone HCl) 5 MG TABLET 1 Tablet ORAL TWICE DAILY Comments: Last Taken: 08/02/17 Time: 800AM Tramadol HCl (Ultram) 50 MG TABLET 1 Tablet ORAL EVERY SIX HOURS NEEDED as needed for PAIN Comments: NOT GIVEN Start taking the following new medications: Levothyroxine Sodium (Synthroid) 75 MCG TABLET 0.075 Milligram ORAL DAILY BEFORE BREAKFAST Qty = 30 No Refills Comments: Last Taken: 08/02/17 Time: 500AM Copies To: Rachel Soto; Suzy MARES,Lobito Brown; Sierra MARES,Gustavo Vyas Attending MD Review Statement Documenting Attending: Azar Hammer MD Other Findings: Discharge in stable condition.
[2017-07-31 15:04] VITALS: BP 120/60
[2017-07-31 22:56] VITALS: BP 122/60
--- NOTE | 2017-08-01 07:20 | PN- Housestaff ---
Fredi MARES,Baudilio 08/01/17 0720: Subjective Follow-up For: anemia Hypotension Right humerus fracture Subjective: Patient was seen and examined at bedside. She was resting comfortably. She had no acute events overnight. She states that overall she is feeling better and that her left arm pain is well-controlled rest. She currently denies any chest pain, shortness of breath, nausea, vomiting, fever, chills, abdominal pain, diarrhea. Review of Systems Constitutional: Denies: chills, fever. Cardiovascular: Denies: chest pain, palpitations. Respiratory: Denies: cough, short of breath. Gastrointestinal: Denies: constipation, diarrhea, melena, nausea, bloody stool. Genitourinary: Reports: no symptoms. Musculoskeletal: Reports: see HPI. Objective Last 24 Hrs of Vital Signs/I&O Vital Signs Date Time Temp Pulse Resp B/P B/P Pulse O2 O2 Flow FiO2 Mean Ox Delivery Rate 07/31 2256 98.4 108 19 122/60 92 Room Air 07/31 1504 98.6 112 18 120/60 92 07/31 1226 Room Air Room Air 07/31 1214 Room Air Room Air 07/31 1125 96 Room Air 07/31 0800 98.0 94 18 124/66 95 Room Air Intake & Output 08/01 0800 08/01 0000 07/31 1600 Intake Total 240 480 600 Output Total 350 625 500 Balance -110 -145 100 Intake, Oral 240 480 600 Number 1 Bowel Movements Output, Urine 350 625 500 Physical Exam General Appearance: Alert, Oriented X3, Cooperative, No Acute Distress Skin Temp/Moisture Exam: Warm/Dry Sepsis Skin Exam (color): Normal for Ethnicity Cardiovascular: Regular Rate, Normal S1, Normal S2 Lungs: Clear to Auscultation, Normal Air Movement Abdomen: Normal Bowel Sounds, Soft, No Tenderness Neurological: Normal Speech, Sensation Intact Extremities: chronic venous stasis changes of the distal lower extremities bilaterally Current Medications: Current Medications Sig/Fanny Start time Last Medication Dose Route Stop Time Status Admin Acetaminophen 650 MG Q8P PRN 07/26 2230 AC 07/30 PO 2128 Albuterol Sulfate 3 ML Q4H PRN 07/26 2345 AC INH Aspirin Buffered 81 MG DAILY 07/27 1000 AC 07/31 PO 0919 Ceftriaxone Sodium 1,000 MG 1000 07/27 0630 AC 07/31 IV 0919 Heparin Sodium 5,000 UNIT Q8 07/29 1400 AC 08/01 (Porcine) SC 0608 Insulin Aspart 0 TIDAC 07/27 0800 AC 07/30 SC 1639 Levothyroxine Sodium 0.05 MG DAILY AC 07/27 0700 AC 08/01 PO 0606 Lidocaine 1 PAT 0800 07/28 0800 AC 07/31 EXT 1419 Lorazepam 0.25 MG Q4P PRN 07/27 1415 AC 07/27 IV 1414 Melatonin 6 MG AT BEDTIME 07/27 2200 AC 07/31 PO 2130 Metronidazole 500 MG Q8 07/27 0600 AC 08/01 PO 0606 Omeprazole 40 MG DAILY AC 07/27 0700 AC 08/01 PO 0606 Oxycodone HCl 5 MG .STK-MED ONE 07/31 2128 DC PO 07/31 212 Oxycodone HCl 5 MG .STK-MED ONE 07/31 1425 DC PO 07/31 1426 Oxycodone HCl 5 MG .STK-MED ONE 07/31 0932 DC PO 07/31 0933 Oxycodone HCl 5 MG Q8P PRN 07/26 2230 AC 08/01 PO 0606 Pravastatin Sodium 10 MG 1700 07/27 1700 AC 07/31 PO 1651 Tiotropium Marion 1 PUF DAILY 07/27 1130 AC 07/31 INH 0929 Last 24 Hrs of Lab/Daniel Results Last 24 Hrs of Labs/Mics: Laboratory Tests 08/01/17 0750: Anion Gap 5, Estimated GFR > 60, BUN/Creatinine Ratio 13.3, CBC w Diff NO MAN DIFF REQ, RBC 3.18 L, MCV 91.1, MCH 30.3, RDW 16.1 H, MPV 7.6, Gran % 79.3 H, Lymphocytes % 10.2 L, Monocytes % 8.3, Eosinophils % 1.6, Basophils % 0.6, Absolute Granulocytes 8.9 H, Absolute Lymphocytes 1.1 L, Absolute Monocytes 0.9 H, Absolute Eosinophils 0.2, Absolute Basophils 0.1, PUBS MCHC 33.2 Assessment/Plan Assessment: Patient is a 77-year-old female with a PMH significant for PE, O2 dependent COPD, hypothyroidism, who presented to the ED complaining of left arm pain and was found to have a left humeral fracture, was hypotensive in the ED was admitted to the ICU. The ICU she required pressors and 4 units PRBC transfusions for anemia. The source of her bleeding was not found and once stable she was transferred to the [facility] floor. #Hypotension Patient was hypotensive this morning 90/52, this is concerning given her recent use pressors and history of hypertension. EKG was done which showed no acute ST changes from previous however patient was in sinus tachycardia. -We'll give IV fluid bolus -If patient's BP responds well to bolus and remains within normal limits tomorrow will DC to STR #Anemia H/H has remained stable over the last 3 days, since her last blood transfusion. No definitive source of bleeding was ever identified. -We'll recheck CBC in a.m. -Patient will follow up with heme/onc as outpatient for workup of anemia #mild leukocytosis -DC'd antibiotics in anticipation of discharge, mild leukocytosis has remained stable. #DVT prophylaxis ALPS CODE STATUS Full code Problem List: 1. Hypotension 2. Anemia Pain Ratin Pain Location: Pain well-controlled rest, patient reports 4/10 left arm pain with motion Pain Goal: Pain 4 or less Pain Plan: Pain pathway Tomorrow's Labs & Rationales: CBC, BEP Jaquelin MARES,Azar 08/01/17 1217: Attending MD Review Statement Attending Statement Attending MD Statement: examined this patient, discuss w/resident/PA/WARP WORKER, agreed w/resident/PA/WARP WORKER, discussed with family, reviewed EMR data (avail), discussed with nursing, discussed with case mgmt, amended to note Attending Assessment/Plan: Patient seen and examined. Resting comfortably not in any acute distress. Records from ICU stay reviewed. She is alert and oriented 3 and not in any distress. She complains of left upper extremity pain controlled on current regimen. She is noted to be hypotensive this morning with systolic blood pressure in the 90s. Repeat blood pressure had systolic blood pressure in the low 100s. Hemoglobin level is stable. She has no evidence of prerenal azotemia to suggest dehydration. She denies any chest pain or palpitations. She denies shortness of breath. On examination left upper extremity is in a sling. Has mild periorbital ecchymosis which is improving according to the family. She has no periorbital tenderness. Heart sounds are regular. Lungs are clear to auscultation bilaterally. Recommendations: -Fluid bolus with normal saline 1 L. -Obtain 12-lead EKG. -Repeat CBC in a.m. -Recommend outpatient hematology follow-up for workup of her anemia. Currently stool guaiac is negative and LDH is also suggestive of hemolysis. -TSH level is elevated. Her Synthroid dose was doubled during this admission. She should have TSH repeated as an outpatient in 6 weeks.
[2017-08-01 07:39] VITALS: BP 90/52
[2017-08-01 09:21] LABS: ABSOLUTE BASOPHIL COUNT 0.1 /CUMM (0.0-0.2); ABSOLUTE EOSINOPHIL COUNT 0.2 /CUMM (0.0-0.7); ABSOLUTE GRANULOCYTE CT 8.9 /CUMM (1.4-6.5); ABSOLUTE LYMPH COUNT 1.1 /CUMM (1.2-3.4); ABSOLUTE MONOCYTE COUNT 0.9 /CUMM (0.10-0.60); BASOPHIL % 0.6 % (0.0-2.0); EOSINOPHIL % 1.6 % (0-5); GRANULOCYTE % 79.3 % (42.2-75.2); MEAN CORPUSCULAR HGB 30.3 PG (27.0-31.0); MEAN CORPUSCULAR HGB CONC 33.2 G/DL (33.0-37.0); MEAN CORPUSCULAR VOLUME 91.1 FL (81.0-99.0); MEAN PLATELET VOLUME 7.6 FL (7.4-10.4); PLATELET COUNT 361 /CUMM (130-400); RBC DISTRIBUTION WIDTH 16.1 % (11.5-14.5); RED BLOOD CELL CT 3.18 /CUMM (4.20-5.40); WHITE BLOOD CELL COUNT 11.2 /CUMM (4.8-10.8)
[2017-08-01 10:48] VITALS: BP 108/60
--- NOTE | 2017-08-01 12:55 | Patient Discharge Instructions ---
Discharge Instructions General Discharge Information You were seen/treated for: Anemia hypotension Special Instructions: Have your thrombphilia panel 3 weeks after discharge. Follow up with your PCP for thrombophilia workup for cause of PE Do not restart Lovenox until after you go over results with PCP Your dose of levothyroxine has been increased. Follow-up with your PCP to have thyroid function tests done in 6 weeks. Follow-up with Hemeatology for anemia work-up, we have provided you with a referral. Acute Coronary Syndrome Inclusion Criteria At DC or during hospital stay patient has or had the following: ACS DIAGNOSIS No Discharge Core Measures Meds if any: Prescribed or Continued at Discharge Meds if any: NOT Prescribed or Continued at Discharge Congestive Heart Failure Inclusion Criteria At DC or during hospital stay patient has or had the following: CHF DIAGNOSIS No Discharge Core Measures Meds if any: Prescribed or Continued at Discharge Meds if any: NOT Prescribed or Continued at Discharge Cerebrovascular accident Inclusion Criteria At DC or during hospital stay patient has or had the following: CVA/TIA Diagnosis No Discharge Core Measures Meds if any: Prescribed or Continued at Discharge Meds if any: NOT Prescribed or Continued at Discharge Venous thromboembolism Inclusion Criteria VTE Diagnosis No VTE Type NONE VTE Confirmed by (Test) NONE Discharge Core Measures - Per Current guidelines, there needs to be overlap - treatment for the first 5 days of Warfarin therapy. - If discharged on Warfarin prior to 5 days of - overlap therapy, the patient will need to be - assessed for post discharge needs including - *Post discharge parental anticoagulation - *Warfarin and/or parental anticoagulation education - *Follow up date to check INR post discharge At least 5 days overlap therapy as Inpatient No Meds if any: Prescribed or Continued at Discharge Note: Overlap Therapy is Warfarin and Anticoagulant Meds if any: NOT Prescribed or Continued at Discharge
[2017-08-01 14:25] VITALS: BP 110/66
[2017-08-01 15:08] VITALS: BP 120/74
[2017-08-01] MEDS ORDERED: SYNTHROID75 MCG PO (21:47)
[2017-08-01 23:25] VITALS: BP 120/50
[2017-08-02 06:44] VITALS: BP 110/60
[2017-08-02 09:13] LABS: ABSOLUTE BASOPHIL COUNT 0 /CUMM (0.0-0.2); ABSOLUTE EOSINOPHIL COUNT 0.2 /CUMM (0.0-0.7); ABSOLUTE GRANULOCYTE CT 9.3 /CUMM (1.4-6.5); ABSOLUTE MONOCYTE COUNT 0.8 /CUMM (0.10-0.60); BASOPHIL % 0.4 % (0.0-2.0); EOSINOPHIL % 1.7 % (0-5); GRANULOCYTE % 81.9 % (42.2-75.2); HEMATOCRIT 27.4 % (37-47); MEAN CORPUSCULAR HGB 30.4 PG (27.0-31.0); MEAN CORPUSCULAR HGB CONC 33.1 G/DL (33.0-37.0); MEAN PLATELET VOLUME 7.8 FL (7.4-10.4); PLATELET COUNT 359 /CUMM (130-400); RBC DISTRIBUTION WIDTH 16.1 % (11.5-14.5); RED BLOOD CELL CT 2.98 /CUMM (4.20-5.40); WHITE BLOOD CELL COUNT 11.4 /CUMM (4.8-10.8)
--- NOTE | 2017-08-02 09:31 | PN- Housestaff ---
Ralph Briggs 08/02/17 0930: Subjective Follow-up For: Anemia Right humerus fracture Subjective: No overnight events. Patient remained afebrile overnight. Patient seen and examined this morning. Patient denied any chest pain, short of breath, nausea, vomiting, abdominal pain, pain in left arm and dysuria. Patient having left arm and arm sling for support. Patient's blood pressure this morning is stable 110/ 60. Patient is being discharged today. Review of Systems Constitutional: Reports: no symptoms. EENTM: Reports: no symptoms. Cardiovascular: Reports: no symptoms. Respiratory: Reports: no symptoms. Gastrointestinal: Reports: no symptoms. Genitourinary: Reports: no symptoms. Musculoskeletal: Reports: see HPI. Neurological/Psychological: Reports: no symptoms. Objective Last 24 Hrs of Vital Signs/I&O Vital Signs Date Time Temp Pulse Resp B/P B/P Pulse O2 O2 Flow FiO2 Mean Ox Delivery Rate 08/02 0644 98.3 76 18 110/60 92 Room Air 08/01 2325 98.3 106 20 120/50 92 08/01 1508 98.7 76 20 120/74 93 Room Air 08/01 1425 84 110/66 08/01 1048 88 108/60 Intake & Output 08/02 1600 08/02 0800 08/02 0000 Intake Total 240 240 Output Total 200 400 Balance 40 -160 Intake, Oral 240 240 Output, Urine 200 400 Physical Exam General Appearance: Alert, Oriented X3, Cooperative, No Acute Distress Skin Temp/Moisture Exam: Warm/Dry HEENT: Atraumatic, PERRLA, EOMI Neck: Supple Cardiovascular: Normal S1, Normal S2 Lungs: Clear to Auscultation Abdomen: Soft, No Tenderness Neurological: Normal Speech, Normal Tone Extremities: b/l chronic venous changes with edema Assessment/Plan Assessment: Patient is a 77-year-old female with a PMH significant for PE, O2 dependent COPD, hypothyroidism, who presented to the ED complaining of left arm pain and was found to have a left humeral fracture, was hypotensive in the ED was admitted to the ICU. The ICU she required pressors and 4 units PRBC transfusions for anemia. The source of her bleeding was not found and once stable she was transferred to the [facility] floor. Hypotension:(resolved) -Patient was admitted with hypotension probably due to dehydration. Patient was hydrated with IV fluids. -Patient also was also on pressors for hypotension. -Patient blood pressure is stable this morning at 110/60. Patient is hemodynamically stable and she can be discharged to short-term rehabilitation today. Anemia: H/H has remained stable over the last 3 days, since her last blood transfusion. No definitive source of bleeding was ever identified. -We'll recheck CBC in a.m. -Patient will follow up with heme/onc as outpatient for workup of anemia Mild leukocytosis: -DC'd antibiotics in anticipation of discharge, mild leukocytosis has remained stable. #DVT prophylaxis ALPS CODE STATUS Full code Problem List: 1. Anemia 2. Proximal humerus fracture Pain Ratin Pain Location: none Pain Goal: Remain pain free Pain Plan: tylenol for mild pain Tomorrow's Labs & Rationales: none Azar Hammer MD 08/02/17 1006: Attending MD Review Statement Attending Statement Attending MD Statement: examined this patient, discuss w/resident/PA/BOXING TRAINER, agreed w/resident/PA/BOXING TRAINER, reviewed EMR data (avail), discussed with nursing, discussed with case mgmt, amended to note Attending Assessment/Plan: Patient seen and examined. No issues overnight reported by nursing staff. Blood pressure has remained stable following fluid hydration yesterday. Patient is alert and oriented 3 conversing appropriately. She offers no new complaints this morning. She reports some left upper extremity discomfort but admits that it is relieved with current pain regimen. On examination she has some swelling of the left upper extremity but no ecchymotic areas noted. Heart sounds are regular. Lungs are clear bilaterally. Abdomen is soft and nontender. She has swelling or tenderness. Recommendations: -She is medically stable to be discharged to [facility] facility today. -On account of her elevated TSH her Synthroid dose has been increased to 75 g daily. She should have her TSH repeated as an outpatient. -Her anticoagulation therapy has been discontinued due to the distant history of her thromboembolic disease, falls and associated acute anemia. -Anemia is presumed to be secondary to blood loss from her humeral fracture. She did received blood transfusion during his hospitalization. Recommend follow -up with the hematology service as an outpatient for further workup of her anemia to rule out other causes other than blood loss.
[2017-08-02 13:19] VITALS: BP 110/60
== END 2017-08-02 16:15 | DRG 683 ==
LOC: ERH 10:56 → 2NA 19:58 → ERHI 19:58 → CRI 19:58 → ENRESERV 22:29 → CRI 23:58 → 2NB 23:59 → CRI 07-27 05:24 → 2NA 07-31 14:01 → ENPENDDIS 08-02 10:10 → 2NA 08-02 16:15
PROVIDERS: Dermatology; Internal Medicine; Internal Medicine Endocrinology, Diabetes & Metabolism; Physician Assistant; Student in an Organized Health Care Education/Training Program
PROC: 02HV33Z Insertion of Infusion Device into Superior Vena Cava, Percutaneous Approach (ICD-10-PCS; principal; 2017-07-27)
PROC: 30233N1 Transfusion of Nonautologous Red Blood Cells into Peripheral Vein, Percutaneous Approach (ICD-10-PCS; 2017-07-27)
DX: N17.9 Acute kidney failure, unspecified (principal); E87.1 Hypo-osmolality and hyponatremia; I27.82 Chronic pulmonary embolism; I95.9 Hypotension, unspecified; E87.5 Hyperkalemia; E86.0 Dehydration; Z99.81 Dependence on supplemental oxygen; J44.9 Chronic obstructive pulmonary disease, unspecified; E83.42 Hypomagnesemia; E11.9 Type 2 diabetes mellitus without complications; I44.7 Left bundle-branch block, unspecified; D50.0 Iron deficiency anemia secondary to blood loss (chronic); S42.202D Unspecified fracture of upper end of left humerus, subsequent encounter for fracture with routine healing; I10 Essential (primary) hypertension; E03.9 Hypothyroidism, unspecified; W19.XXXD Unspecified fall, subsequent encounter; Z79.84 Long term (current) use of oral hypoglycemic drugs; Z87.891 Personal history of nicotine dependence
CPT/HCPCS: 2NASP; 2NSBP; 84133; 84300; CCU; 36415; 74176; 80307; 81001; 82436; 82570; 83010; 86920; 87040; 87045; 87086; 93005; 93010; 93306; 93970; 96361; 96374; 97110-GO; 97116-GO; 97161-GP; 97530-GO; 99291; J0696; J1644; J2060; J7040; P9016